=== PATIENT | female | born 1975 | race Asian ===

== ENCOUNTER 2024-06-04 11:23 | Emergency (ER) | payer MEDICAID ==
[~2024-06-04] VITALS: Ht 162.6 cm; Wt 54.5 kg
[~2024-06-04 11:23] MED LIST: DOXY-8 PO; ESCI10TA45 PO; ESOM40CA PO; HYDR1TAB PO; TRAZ50TA54 PO; WEL75T PO
[2024-06-04 12:10] LABS: BASOPHILS % (AUTO) 0.4 % (0-1); EOSINOPHILS # (AUTO) 0.1 X10'3 (0-0.9); EOSINOPHILS % (AUTO) 1.8 % (0-6); HEMATOCRIT 39.7 % (35.0-45.0); HEMOGLOBIN 13.1 g/dl (12.0-16.0); LYMPHOCYTES # (AUTO) 1.7 X10'3 (1.1-4.8); LYMPHOCYTES % (AUTO) 26.2 % (21-51); MEAN CORPUSCULAR HEMOGLOBIN 29.7 PG (27.0-31.0); MEAN CORPUSCULAR VOLUME 90.1 FL (78-98); MEAN PLATELET VOLUME 8.1 FL (7.4-10.4); MONOCYTES # (AUTO) 0.4 X10'3 (0-0.9); MONOCYTES % (AUTO) 6.8 % (2-12); NEUTROPHILS # (AUTO) 4.1 X10'3 (1.8-7.7); NEUTROPHILS % (AUTO) 64.8 % (42-75); PLATELET COUNT 282 X10'3 (140-440); RED BLOOD COUNT 4.41 X10'6 (4.20-5.60); RED CELL DISTRIBUTION WIDTH 14.2 % (11.5-14.5); WHITE BLOOD COUNT 6.3 X10'3 (4.5-11.0)
[2024-06-04 12:25] LABS: ALANINE AMINOTRANSFERASE 29 U/L (12-78); ALBUMIN 3.6 G/DL (3.4-5.0); ALBUMIN/GLOBULIN RATIO 0.7 (1.1-1.5); ALKALINE PHOSPHATASE 121 IU/L (46-116); ANION GAP 8 (8-16); ASPARTATE AMINO TRANSFERASE 25 U/L (10-37); BILIRUBIN,TOTAL 0.3 MG/DL (0.1-1.0); BLOOD UREA NITROGEN 13 MG/DL (7-18); BUN/CREATININE RATIO 15.1 (10.0-20.0); CALCIUM 8.8 MG/DL (8.5-10.1); CHLORIDE 102 MMOL/L (99-107); CREATININE 0.86 MG/DL (0.40-0.90); GLUCOSE 117 MG/DL (70-104); POTASSIUM 3.7 MMOL/L (3.5-5.1); SODIUM 139 MMOL/L (135-145); TOTAL CARBON DIOXIDE 29.5 MMOL/L (24-32); TOTAL PROTEIN 8.5 G/DL (6.4-8.2); eCRCL 67 ML/MIN; eGFR 70 ML/MIN
[2024-06-04 12:35] LABS: PRO BRAIN NATRIURETIC PEPTIDE 51 PG/ML (0-125)
[2024-06-04 13:19] LABS: THYROID STIMULATING HORMONE 0.76 ulU/ml (0.34-4.50)
[2024-06-04] MEDS ORDERED: GADOTERATE MEGLUMINE 7.5 MMOL/15 ML VIAL IV ONE (18:28)
[2024-06-04] MEDS: acetaminophen 325mg/10.15ml oral unit dose solution PO ONE (19:02)
[2024-06-04 19:05] VITALS: BP 128/76; PULSE 76; RESP 16; TEMP 98.1; O2SAT 99
== END 2024-06-04 19:13 | disposition home or self-care (01) ==
LOC: ER 11:23
DX: R22.1 Localized swelling, mass and lump, neck (principal); F41.9 Anxiety disorder, unspecified; Z88.6 Allergy status to analgesic agent; Z79.899 Other long term (current) drug therapy
CPT/HCPCS: 36415; 70543; 71045; 76881; 80053; 83880; 84443; 85025; 93005; 99285; A9575

== ENCOUNTER 2024-06-25 14:20 | Emergency (ER) | payer MEDICAID ==
[~2024-06-25] VITALS: Ht 147.3 cm; Wt 55.0 kg
[2024-06-25 14:28] VITALS: TEMP 98.5
[2024-06-25 16:19] LABS: BASOPHILS % (AUTO) 0.2 % (0-1); EOSINOPHILS # (AUTO) 0.2 X10'3 (0-0.9); EOSINOPHILS % (AUTO) 1.3 % (0-6); LYMPHOCYTES # (AUTO) 1.5 X10'3 (1.1-4.8); LYMPHOCYTES % (AUTO) 12.3 % (21-51); MEAN CORPUSCULAR HEMOGLOBIN 29.6 PG (27.0-31.0); MEAN CORPUSCULAR HGB CONC 33.2 g/dL (33.0-36.5); MEAN CORPUSCULAR VOLUME 89.3 FL (78-98); MEAN PLATELET VOLUME 8.2 FL (7.4-10.4); MONOCYTES # (AUTO) 1.2 X10'3 (0-0.9); MONOCYTES % (AUTO) 10.1 % (2-12); NEUTROPHILS # (AUTO) 9.4 X10'3 (1.8-7.7); NEUTROPHILS % (AUTO) 76.1 % (42-75); PLATELET COUNT 309 X10'3 (140-440); RED BLOOD COUNT 4.03 X10'6 (4.20-5.60); RED CELL DISTRIBUTION WIDTH 14.3 % (11.5-14.5); WHITE BLOOD COUNT 12.3 X10'3 (4.5-11.0)
[2024-06-25 16:37] LABS: ALANINE AMINOTRANSFERASE 27 U/L (12-78); ALBUMIN 3.1 G/DL (3.4-5.0); ALBUMIN/GLOBULIN RATIO 0.6 (1.1-1.5); ALKALINE PHOSPHATASE 128 IU/L (46-116); ANION GAP 5 (8-16); ASPARTATE AMINO TRANSFERASE 20 U/L (10-37); BILIRUBIN,TOTAL 0.4 MG/DL (0.1-1.0); BLOOD UREA NITROGEN 7 MG/DL (7-18); BUN/CREATININE RATIO 8.5 (10.0-20.0); CALCIUM 8.6 MG/DL (8.5-10.1); CHLORIDE 104 MMOL/L (99-107); CREATININE 0.82 MG/DL (0.40-0.90); GLUCOSE 117 MG/DL (70-104); LIPASE 22 U/L (16-77); POTASSIUM 3.9 MMOL/L (3.5-5.1); SODIUM 140 MMOL/L (135-145); TOTAL CARBON DIOXIDE 31.2 MMOL/L (24-32); eCRCL 52 ML/MIN; eGFR 73 ML/MIN
[2024-06-25 19:18] LABS: URINE HCG NEGATIVE (NEG)
[2024-06-25 19:31] LABS: BILIRUBIN,URINE NEGATIVE (Neg); CLARITY,URINE CLEAR (Clear); COLOR,URINE YELLOW (Yellow); GLUCOSE, URINE NEGATIVE (Neg); KETONES,URINE NEGATIVE (Neg); LEUKOCYTE ESTERASE ,URINE NEGATIVE (Neg); NITRITES, URINE NEGATIVE (Neg); OCCULT BLOOD,URINE LARGE (Neg); PH,URINE 6.5 (4.8-8.0); PROTEIN,URINE NEGATIVE (Neg); UROBILINOGEN,URINE 0.2 E.U/dL (0.2-1.0)
[2024-06-25 19:35] LABS: UA COLLECTION TYPE CLN CATCH MIDSTREAM
[2024-06-25 19:36] LABS: BACTERIA,URINE 1+ /HPF (Neg); RBC,URINE 20-50 /HPF (0-2); SQUAMOUS EPITHELIAL CELL,UR FEW /LPF (FEW); WBC,URINE 0-4 /HPF (0-4)
[2024-06-25] MEDS ORDERED: LEVO-65 PO (20:07)
[2024-06-25] MEDS ORDERED: POLY119P2 PO (20:07)
[2024-06-25] MEDS ORDERED: METR-159 PO (20:07)
[2024-06-25] MEDS: metroNIDAZOLE 500mg tablet PO ONE (20:13)
[2024-06-25] MEDS: levoFLOXACIN 250mg tablet PO ONE (20:14)
[2024-06-25 20:20] VITALS: BP 105/68; PULSE 76; RESP 16; O2SAT 98
== END 2024-06-25 20:22 | disposition home or self-care (01) ==
LOC: ER 14:21
DX: K52.9 Noninfective gastroenteritis and colitis, unspecified (principal); K59.00 Constipation, unspecified; F41.9 Anxiety disorder, unspecified; Z88.6 Allergy status to analgesic agent; Z79.899 Other long term (current) drug therapy
CPT/HCPCS: 36415; 74176; 80053; 81001; 81025; 83690; 85025; 99284

== ENCOUNTER 2024-10-10 06:23 | Day surgery (SDC) | payer MEDICAID ==
[2024-10-03 11:01] LABS: BASOPHILS % (AUTO) 0.5 % (0-1); EOSINOPHILS # (AUTO) 0.1 X10'3 (0-0.9); EOSINOPHILS % (AUTO) 2.1 % (0-6); LYMPHOCYTES % (AUTO) 31.4 % (21-51); MEAN CORPUSCULAR HEMOGLOBIN 28.7 PG (27.0-31.0); MEAN CORPUSCULAR HGB CONC 32.2 g/dL (33.0-36.5); MEAN CORPUSCULAR VOLUME 89.1 FL (78-98); MEAN PLATELET VOLUME 8.2 FL (7.4-10.4); MONOCYTES # (AUTO) 0.7 X10'3 (0-0.9); MONOCYTES % (AUTO) 10.1 % (2-12); NEUTROPHILS # (AUTO) 3.7 X10'3 (1.8-7.7); NEUTROPHILS % (AUTO) 55.9 % (42-75); PRE OP HEMATOCRIT 39.7 % (35.0-45.0); PRE OP HEMOGLOBIN 12.8 g/dL (12.0-16.0); PRE OP PLATELET COUNT 268 X10'3 (140-440); PRE OP WHITE BLOOD COUNT 6.5 10'3 (4.8-10.8); RED BLOOD COUNT 4.46 X10'6 (4.20-5.60); RED CELL DISTRIBUTION WIDTH 14.3 % (11.5-14.5)
[2024-10-03 11:29] LABS: ALBUMIN 3.6 G/DL (3.4-5.0); ALBUMIN/GLOBULIN RATIO 0.8 (1.1-1.5); ALKALINE PHOSPHATASE 109 IU/L (46-116); BLOOD UREA NITROGEN 10 MG/DL (7-18); BUN/CREATININE RATIO 13.3 (10.0-20.0); CALCIUM 8.9 MG/DL (8.5-10.1); CHLORIDE 104 MMOL/L (99-107); CREATININE 0.75 MG/DL (0.40-0.90); PRE OP ALT 34 U/L (30-65); PRE OP ANION GAP 6 (8-16); PRE OP AST 32 U/L (10-37); PRE OP BILIRUB, TOTAL 0.3 MG/DL (0.0-1.0); PRE OP GLUCOSE 122 MG/DL (70-104); PRE OP POTASSIUM 3.8 MMOL/L (3.4-5.1); PRE OP SODIUM 142 MMOL/L (135-145); TOTAL CARBON DIOXIDE 32.4 MMOL/L (24-32); TOTAL PROTEIN 8.4 G/DL (6.4-8.2); eGFR 81 ML/MIN
[~2024-10-10] VITALS: Ht 129.5 cm; Wt 52.0 kg
[2024-10-10] VITALS (11 sets, daily range): BP systolic 91–132; BP diastolic 53–78; PULSE 64–96; RESP 12–20; TEMP 99; O2SAT 94–100
[~2024-10-10 06:23] MED LIST changes: +ALBU8HFA PO; +BECL10.62 INH; +DOCU-391 PO; -DOXY-8 PO; +ESCI-8 PO; -ESCI10TA45 PO; -ESOM40CA PO; -HYDR1TAB PO; +OMEP40CA21 PO; -TRAZ50TA54 PO
[2024-10-10] MEDS ORDERED: famotidine 20mg tablet ONE (06:52)
[2024-10-10] MEDS: famotidine 20mg tablet PO ONE (06:52)
[2024-10-10] MEDS: ringers solution, lacted 1,000 ML IV SCH (06:53)
[2024-10-10] MEDS ORDERED: proCHLORperazine 10 MG/2 ml inj IV PRN (08:25)
[2024-10-10] MEDS ORDERED: ringers solution, lacted 1,000 ML IV SCH (08:25)
[2024-10-10] MEDS ORDERED: HYDROmorphone/PF 0.2 MG/ML SYRINGE IV PRN ×2 (08:25)
[2024-10-10] MEDS ORDERED: meperidine/PF 25mg/ml syringe IV PRN (08:25)
[2024-10-10] MEDS ORDERED: labetalol 20mg/4ml (5mg/ml) syringe IV PRN (08:25)
[2024-10-10] MEDS ORDERED: ondansetron/PF 4mg/2ml inj IV PRN (08:25)
[2024-10-10] MEDS ORDERED: morphine 2 MG/ML inj. syringe IV PRN (08:25)
[2024-10-10] MEDS ORDERED: morphine 4 MG/ML inj SYRINge IV PRN (08:25)
[2024-10-10] MEDS ORDERED: acetaminophen 1,000mg/100ml IV 100 ML IV PRN (08:25)
[2024-10-10] MEDS ORDERED: hydrALAZINE 20mg/ml inj. IV PRN (08:25)
[2024-10-10] MEDS ORDERED: sevoflurane 250ml liquid IH ONE (08:38)
[2024-10-10] MEDS ORDERED: fentaNYL/PF 50MCG/1 ML 2ML syringe ONE (08:43)
[2024-10-10] MEDS ORDERED: ondansetron/PF 4mg/2ml inj ONE (09:01)
[2024-10-10] MEDS ORDERED: dexamethasone sod phosphate 4mg/ml inj. ONE (09:01)
[2024-10-10] MEDS ORDERED: midazolam 1 mg/ML 2ml injection ONE (09:01)
[2024-10-10] MEDS ORDERED: rocuronium 10mg/ml inj IV ONE (09:01)
[2024-10-10] MEDS ORDERED: LIDOcaine 2% (20mg/ml) 5ml vial ONE (09:01)
[2024-10-10] MEDS ORDERED: glycopyrrolate 0.2mg/ml inj ONE (09:30)
[2024-10-10] MEDS ORDERED: neostigmine methylsulfate 1 MG/ML 10ml vial ONE (09:30)
[2024-10-10] MEDS ORDERED: propofol inj 20 ML IV ONE (09:32)
[2024-10-10] MEDS ORDERED: sugammadex 200mg/2ml injection IV ONE (09:39)
== END 2024-10-10 11:03 | disposition home or self-care (01) ==
LOC: PAS 06:23
PROVIDERS: ATTEND Internal Medicine Critical Care Medicine
DX: R91.8 Other nonspecific abnormal finding of lung field (principal); C34.12 Malignant neoplasm of upper lobe, left bronchus or lung; F32.A Depression, unspecified; K21.9 Gastro-esophageal reflux disease without esophagitis; F41.8 Other specified anxiety disorders; Z87.891 Personal history of nicotine dependence; Z79.899 Other long term (current) drug therapy; Z91.041 Radiographic dye allergy status; J43.9 Emphysema, unspecified; Z88.8 Allergy status to other drugs, medicaments and biological substances; Z98.890 Other specified postprocedural states
CPT/HCPCS: 31624; 31627; 31628; 31653; 36415; 71250; 80053; 82948; 85025; 87015; 87070; 87116; 87206; 94760; J1100; J2003; J2250; J2405; J2704; J2710; J3010; J3490; J7120; Z7506; Z7508; Z7512; 31622; 31625; 31626; 31654; A4618

== ENCOUNTER 2024-11-28 07:15 | Outpatient (CLI) | payer MEDICAID ==
[~2024-11-28] VITALS: Ht 154.9 cm; Wt 53.5 kg
[2024-11-28 07:44] LABS: ABG BASE EXCESS 4.9 mmol/L (-2.0-3.0); ABG HCO3 29.8 mmol/L (21.0-28.0); ABG OXYGEN SATURATION 94.6 % (94.0-98.0); ABG PCO2 (T) 45.1 mmHg (32.0-45.0); ABG PH (T) 7.438 (7.350-7.450); FCOHb 0.5 % (0.5-1.5); FHHb 5.4 % (0.0-5.0); FMetHb 0.3 % (0.0-1.5); FO2Hb 93.8 % (94.0-98.0); MODE ROOM AIR; TOTAL HEMOGLOBIN 13.3 G/dl (12.0-16.0)
[2024-11-28] MEDS: albuterol 2.5 MG/3 ML nebule NEB ONE (08:15)
[2024-11-28 08:18] VITALS: PULSE 85; RESP 18; O2SAT 96
[2024-11-28 08:30] VITALS: PULSE 95; RESP 16
--- NOTE | 2024-11-28 15:05 | PROCEDURE NOTE - Respiratory ---
Procedure Note-Respiratory Providers to Copies To 1: BECKY PARKER MD Procedure Name: This is a complete pulmonary function study dated November 28, 2024. Hemoglobin measurement was done as part of the study. There was also a room air blood gas obtained from this patient on the same date. Spirometry measurements: There is moderate reduction in both the forced vital capacity and the FEV1. The FEV1 ratio is also slightly reduced. All of the measured flow rates show some degree of reduction. After inhaled bronchodilator was administered, the FEV1 and the flow rates show significant improvement. Lung volume measurements: The total lung capacity is in the normal range. There is slight elevation in the residual volume and functional residual capacity. This suggests a mild degree of air trapping within the lungs. Lung diffusion measurement: The DLCO measurement is in the lower range of normal. It is noted that the hemoglobin measurement is normal. Airway resistance measurement: The airway resistance is normal. Conclusion: This study is abnormal. There is evidence for moderate severity obstructive ventilatory defect. This is consistent with the patient's diagnosis of COPD. The patient shows slight improvement with inhaled bronchodilator. This patient should continue to receive bronchodilator medication. The lung diffusion measurement is in the normal range. We have no previous studies for comparison. A blood gas was drawn from this patient while the patient was breathing room air. The blood pH is normal. The pCO2 is borderline elevated. This suggests a minimal respiratory acidosis which is well compensated for with kidney bicarbonate retention. The room air PO2 is slightly diminished at 74 mmHg. LEANNE GARCES MD November 28, 2024 15:05
== END 2024-11-28 23:59 | disposition home or self-care (01) ==
LOC: RT 07:15
PROVIDERS: ATTEND Surgery
DX: J98.4 Other disorders of lung (principal)
CPT/HCPCS: 36600; 82803; 85018; 94060; 94727; 94729; 94760

== ENCOUNTER 2024-12-02 10:35 | Outpatient (CLI) | payer MEDICAID ==
[2024-12-01 14:18] LABS: ALANINE AMINOTRANSFERASE 24 U/L (12-78); ALBUMIN 3.4 G/DL (3.4-5.0); ALBUMIN/GLOBULIN RATIO 0.9 (1.1-1.5); ALKALINE PHOSPHATASE 114 IU/L (46-116); ANION GAP 6 (8-16); ASPARTATE AMINO TRANSFERASE 18 U/L (10-37); BILIRUBIN,TOTAL 0.2 MG/DL (0.1-1.0); BLOOD UREA NITROGEN 10 MG/DL (7-18); BUN/CREATININE RATIO 13.7 (10.0-20.0); CALCIUM 8.7 MG/DL (8.5-10.1); CHLORIDE 103 MMOL/L (99-107); CREATININE 0.73 MG/DL (0.40-0.90); GLUCOSE 115 MG/DL (70-104); POTASSIUM 3.6 MMOL/L (3.5-5.1); SODIUM 141 MMOL/L (135-145); TOTAL CARBON DIOXIDE 32.1 MMOL/L (24-32); TOTAL PROTEIN 7.4 G/DL (6.4-8.2); eGFR 84 ML/MIN
[2024-12-02] MEDS ORDERED: GADOTERATE MEGLUMINE 7.5 MMOL/15 ML VIAL IV ONE (14:03)
--- NOTE | 2024-12-03 08:35 | RADIOLOGY REPORT ---
CLINICAL INDICATION: MALIGNANT NEOPLASM OF LUNG COMPARISON: None TECHNIQUE: Multisequence multiplanar MRI images of the brain were obtained prior to and after the une ventful administration of 10 mL of Clariscan contrast. FINDINGS:No acute infarct or hemorrhage. No mass or midline shift. No abnormal parenchymal or meninge al enhancement. There are a few small foci of T2/FLAIR hyperintense signal in the periventricular and subcortical white matter, which are are nonspecific, but most likely sequelae of chronic small vesse l ischemic disease.Ventricles and sulci are within normal limits. Basal cisterns are patent. Cerebell um, brainstem, and midline structures are within normal limits. Mild mucosal thickening of the parana vanesa sinuses. Orbits are grossly unremarkable. IMPRESSION: 1. No acute intracranial abnormality. 2. No mass or abnormal postcontrast enhancement.
== END 2024-12-02 23:59 | disposition home or self-care (01) ==
LOC: MRI 10:35
PROVIDERS: ATTEND Surgery
DX: Z01.818 Encounter for other preprocedural examination (principal); C34.90 Malignant neoplasm of unspecified part of unspecified bronchus or lung; R90.82 White matter disease, unspecified; J32.9 Chronic sinusitis, unspecified
CPT/HCPCS: 36415; 70553; 80053; A9575

== ENCOUNTER 2025-01-26 05:10 | Inpatient (IN) | payer MEDICAID ==
[~2025-01-26] VITALS: Ht 154.9 cm; Wt 58.0 kg
[~2025-01-26 05:10] MED LIST changes: +METH-603 PO
--- NOTE | 2025-01-26 05:17 | ELECTROCARDIOGRAPH REPORT ---
[facility] Test Date: 2025-01-26 Test Time: 05:15:51 Pat Name: SIXTO BUCKLEY Department: EMERGENCY ROOM Room: [place] [address] Gender: F Building Certifier: SHMUEL : [id number] Requested By: CORAL PAYTON Order Number: [id number] Reading MD: Dr. Kristofer Garcia Measurements Intervals [place] Rate: 121 P: 84 IA: 161 QRS: 73 QRSD: 72 T: 51 QT: 316 QTc: 449 Interpretive Statements Sinus tachycardia Probable left atrial enlargement Minimal ST depression, diffuse leads Baseline wander in lead(s) V3 Electronically Signed On 02-04-2025 20:11:[address] Kristofer Garcia Please click the below link to view image of tracing.
--- NOTE | 2025-01-26 05:34 | Physician Documentation ---
History of Present Illness ~ Chief Complaint: Difficulty Breathing Stated Complaint: SHORT OF BREATH Time Seen by MD: 05:30 Primary Medical Doctor: JOSE A ACKERMAN HPI 49-year-old female, history of lung cancer status post lobectomy, who presents with shortness of breath The patient tells me that for the past 2-3 days she has had gradually worsening shortness of breath. She does report having a cough. She had a fever yesterday. She reports pain in her central chest. She reports diffuse abdominal pain as well. She reports feeling generally weak. She denies any vomiting or diarrhea. She did not really eat well yesterday. No leg pain or swelling. A family member was ill with a cough recently. Medication Reconciliation Allergies: Coded Allergies: amoxicillin (Verified Allergy, Unknown, 01/26/25) ibuprofen (Verified Adverse Reaction, Mild, 01/26/25) BLEEDING FROM HER NOSE IN 2011 Uncoded Allergies: CONTRAST (Allergy, Unknown, 10/09/24) Scheduled Beclomethasone Dipropionate (Qvar Redihaler), 2 PUFFS INH Q12H, (Reported) Docusate Sodium (Docusate Sodium), 1 CAP PO DAILY, (Reported) Gabapentin (Gabapentin), 1 CAP PO Q8H, (Reported) Levofloxacin (Levofloxacin), 1 TAB PO DAILY, (Reported) Levofloxacin (Levofloxacin), 1 TAB PO DAILY, (Reported) Metronidazole* (Flagyl*), 1 TAB PO Q12H, (Reported) Scheduled PRN Methadone Hcl* (Dolophine*), 40 MG PO BID PRN for pain, (Reported) albuterol inhaler (Pro-Air Inhaler), 2 PUFFS PO Q4H PRN for SOB or wheezing, (Reported) Discontinued Medications Bupropion Hcl* (Wellbutrin*), 1 TAB PO DAILY, (Reported) Discontinued Reason: patient no longer taking Escitalopram Oxalate (Escitalopram Oxalate), 1 TAB PO DAILY, (Reported) Discontinued Reason: patient no longer taking Omeprazole (Prilosec), 20 MG PO DAILY, (Reported) Discontinued Reason: patient no longer taking Past Medical History Past Medical History: Anxiety Past Surgical History: no surgical history Patient History: FHx: diabetes mellitus MOTHER Alcohol Use: None Drug Use: none Lives with: Family Lives In: Home Occupation: unemployed Review of Systems Constitutional: Reports: fever Respiratory: Reports: cough, shortness of breath Cardiovascular: Reports: chest pain Gastrointestinal: Reports: abdominal pain Physical Exam Vital Signs: Temperature: 100.8, Source: Oral, Heart Rate: 124, Pulse Oximetry: 100, Weight: 58.000 Physical Exam General: This is a thin and ill-appearing middle-aged woman HEENT: Atraumatic, oropharynx appears dry with cracked lips Heart: Tachycardic, appears regular, heart rate in the 120s Lungs: The patient is not in respiratory distress, but does have slightly increased respiratory rate. She has very coarse and wet sounding breath sounds diffusely Abdomen: Diffuse tenderness to palpation with voluntary guarding in all quadrants Extremities: Warm and well-perfused, no pitting edema, no posterior calf or thigh tenderness Neuro: Alert and oriented, the patient is not appear confused Psychiatric: Appears tired but is cooperative with exam Progress Results/Orders Results/Orders Orders - LELIA DUMONT MD Covid19 Binax Poc Result Entry (01/26/25 06:10) Store Meds In Pharmacy (Store Meds In Ph (01/26/25 09:50) Ct Chest Abdomen Pelvis (01/26/25 12:01) Page Hospitalist (01/26/25 12:51) Fill Out Med Reconciliation (01/26/25 12:51) Completed Orders - LELIA DUMONT MD Methylprednisolone Sod Succ (Solumedrol (01/26/25 06:20) Ceftriaxone/I4x-Iubxsrjq 1gm (Rocephin 1 (01/26/25 06:25) Azithromycin/Ns 500mg/250ml (Zithromax/N (01/26/25 06:25) Normal Saline 1000ml (0.9% Sodium Chlori (01/26/25 07:30) Potassium Cl Sr Tablet (K-Dur Tablet) (01/26/25 07:27) Potassium Cl 10meq/100ml Bag (Potassium (01/26/25 07:30) Normal Saline 1000ml (0.9% Sodium Chlori (01/26/25 07:30) Iohexol 350mg/Ml 100ml (Omnipaque 350mg/ (01/26/25 09:52) Diphenhydramine Inj (Benadryl Inj.) (01/26/25 10:45) Ct Chest Abdomen Pelvis (01/26/25 12:01) Medications Received in ER Medications (Trade) Dose Ordered Sig/Jude Route PRN Reason Start Time Stop Time Status Last Admin Dose Admin Sodium Chloride 1,000 ml @ 1,000 mls/hr ONCE ONCE IV 01/26/25 07:30 01/26/25 08:29 DC 01/26/25 08:01 1,000 MLS/HR Potassium Chloride 100 ml @ 100 mls/hr Q1H IV 01/26/25 07:30 01/26/25 08:29 DC 01/26/25 08:01 100 MLS/HR Sodium Chloride 1,000 ml @ 1,000 mls/hr ONCE ONCE IV 01/26/25 07:30 01/26/25 08:29 DC 01/26/25 08:00 1,000 MLS/HR Vital Signs 01/26/25 01/26/25 01/26/25 01/26/25 05:14 05:31 05:37 07:00 Temp 100.8 100.8 97.9 Pulse 124 133 106 Resp 21 17 B/P (MAP) 157/67 (97) 109/55 (73) Pulse Ox 100 90 96 O2 Flow Rate 0 2.0 01/26/25 01/26/25 01/26/25 01/26/25 09:00 11:00 12:02 12:51 Temp 97.9 Pulse 108 99 99 90 Resp 18 15 19 12 B/P (MAP) 109/55 (73) 129/69 (89) 123/66 (85) 123/68 (86) Pulse Ox 96 99 97 98 O2 Flow Rate 2.0 2.0 2.0 2.0 Laboratory Tests Test 01/26/25 05:55 01/26/25 06:03 01/26/25 07:43 01/26/25 08:08 White Blood Count 14.6 H Red Blood Count 3.95 L Hemoglobin 11.2 L Hematocrit 34.5 L Mean Corpuscular Volume 87.3 Mean Corpuscular Hemoglobin 28.3 Mean Corpuscular Hemoglobin Concent 32.4 L Red Cell Distribution Width 14.7 H Platelet Count 315 Mean Platelet Volume 7.9 Neutrophils (%) (Auto) 73.6 Lymphocytes (%) (Auto) 18.7 L Monocytes (%) (Auto) 5.6 Eosinophils (%) (Auto) 1.7 Basophils (%) (Auto) 0.4 Neutrophils # (Auto) 10.8 H Lymphocytes # (Auto) 2.7 Monocytes # (Auto) 0.8 Eosinophils # (Auto) 0.2 Basophils # (Auto) 0.1 CBC Comment Sodium Level 141 Potassium Level 2.9 *L Chloride Level 102 Carbon Dioxide Level 27.8 Anion Gap 11 Blood Urea Nitrogen 9 Creatinine 0.81 Estimated GFR/1.73 m2 75 BUN/Creatinine Ratio 11.1 Glucose Level 124 H Hemoglobin A1c 6.1 Calcium Level 8.6 Total Bilirubin 0.2 Aspartate Amino Transf (AST/SGOT) 17 Alanine Aminotransferase (ALT/SGPT) 20 Alkaline Phosphatase 112 Pro-B-Type Natriuretic Peptide 72 Total Protein 8.2 Albumin 3.3 L Globulin 4.9 H Albumin/Globulin Ratio 0.7 L Lipase 31 Procalcitonin < 0.05 Chemistry Comments Lactic Acid Level 3.8 H 3.1 H Troponin I High Sensitivity 4 8 Troponin I High Sens Percent Delta 100 Troponin I Hi Sens Absolute Change 4 Urine Specimen Description Cln catch midstream Urine Color Yellow Urine Clarity Clear Urine pH 6.0 Urine Specific [place] 1.020 Urine Protein Negative Urine Glucose (UA) Negative Urine Ketones Negative Urine Occult Blood Large H Urine Nitrite Negative Urine Bilirubin Negative Urine Urobilinogen 0.2 Urine Leukocyte Esterase Negative Urine RBC 20-50 Urine WBC 0-4 Urine Squamous Epithelial Cells Moderate Urine Bacteria Few Urine Hyaline Casts 0-3 Urine Culture Indicated Not ind Volume Urine Centrifuged 10 ml Urine Comment SARS-CoV-2 Antigen (Rapid) Negative Test 01/26/25 08:28 Troponin I High Sensitivity 12 Troponin I High Sens Percent Delta 50 Troponin I Hi Sens Absolute Change 4 Microbiology Date/Time Source Procedure Growth Status 01/26/25 06:03 Blood Arm Right Blood Culture - Preliminary NEGATIVE (LESS THAN 24 HOURS) Resulted EKG/XRAY/CT/US/VASC/MRI EKG : Additional Comment I personally interpreted the EKG and this shows: Sinus tachycardic, rate 121, QTC less than 500, poor baseline but no obvious STEMI or ischemic changes Chest X-Ray : Additional Comments CHEST RADIOGRAPH Indication: CP Technique: Single frontal view of the chest was obtained COMPARISON: DI CHEST,SINGLE VIEW on DOS: 12/21/24, DI CHEST,SINGLE VIEW on DOS: 12/20/24, DI CHEST,SINGLE VIEW on DOS: 12/19/24, DI CHEST,SINGLE VIEW on DOS: 12/18/24, DI CHEST,SINGLE VIEW on DOS: 12/17/24 FINDINGS: Lines and Tubes: None Lungs: Clear Pleura: No effusion. No pneumothorax. Cardiomediastinal contours: Unremarkable Bones: Unremarkable IMPRESSION: 1. No acute disease. CT : Impression Procedure: CT CT CHEST ABDOMEN PELVIS 01/26/2025 11:51 AM Indication: chest and abdominal pain Comparison Study: CT CT ABDOMEN PELVIS on DOS: 06/25/24 Technique: Axial images were obtained and reformatted in coronal and sagittal planes. All CT scans at this medical facility are performed using dose modulation techniques as appropriate to a performed exam including the following: Automated exposure control was utilized; adjustment of the MA and/or KV according to patient size; and use of iterative reconstruction technique. CT Dose: CTDI volume is 10.4 mGy. Dose-length product is 521 mGy*cm FINDINGS: Lower neck: Unremarkable. Cardiomediastinal: The heart size is slightly enlarged. There is a small pericardial effusion. There is coronary artery calcification. There are small calcified left hilar lymph nodes. The aorta is slightly tortuous Lungs: There are patchy infiltrates present in both lower lobes. There is some focal consolidation or atelectasis in the right middle lobe. Pleura: Left pleural effusion is present. Hepatobiliary: Unremarkable. Spleen: Unremarkable. Pancreas: Unremarkable. Adrenal Glands: Unremarkable. tract: The kidneys are normal in size bilaterally without hydronephrosis or nephrolithiasis. The urinary bladder is unremarkable. GI tract: The stomach is grossly normal in appearance. No evidence of small bowel obstruction. The large bowel is unremarkable. There is stool throughout the colon. No evidence of appendicitis. Lymphatics: No mesenteric, retroperitoneal or periportal lymphadenopathy. Vasculature: The abdominal aorta is normal in in caliber. Pelvic Organs: Unremarkable. Bones/soft tissues: No acute abnormality. Other: None. IMPRESSION: 1. Patchy bibasilar infiltrates with left pleural effusion. Atelectasis right middle lobe. Small pericardial effusion 2. Fecal loading in the colon. No acute pathology in the abdomen or pelvis Medical Decision Making Differential Dx:Considerations: Include: asthma, bronchitis, cardiogenic shock, CHF, dysrhythmia, hyponatremia, myocardial infarction, pneumonia, pneumothorax, pulmonary embolism, respiratory distress, upper resp. infection Assessment The patient presents with shortness of breath, reported fever, and is ill- appearing. On exam she has diffuse crackles and coarse breath sounds, concerning for pneumonia or pulmonary edema. She does not have significant wheezes. EKG without clear ischemic changes. She was given pain and nausea medication. A broad workup will be obtained including evaluation for sepsis, pneumonia, and cardiac cause of her symptoms. The patient was signed out at shift change to the oncoming ER provider, pending further workup and testing. I received sign-out from the incoming ED physician. This is a 49-year-old female presenting with shortness of breath, fever and rapid heart rate. Her lab workup indicates a WBC count of 14.6. Her lactic acid was also elevated to 3.8. Patient was tachycardic initially. As per septic protocol she was medicated with IV fluids proximally 2 L which would meet her 30 cc per kg protocol. Patient was also hypokalemic and her potassium was replaced. Additionally I did start her on IV ceftriaxone 1 g and IV azithromycin 500 mg. She was complaining of some chest pain and abdominal pain as well on a CT of the chest abdomen and pelvis was was done which confirmed some bilateral pulmonary infiltrates versus atelectasis which likely represents a pneumonia. I suspect that she is having pneumonia with sepsis and will need to be admitted for further treatment and care. Departure Disposition: ADMITTED INPATIENT Admitted to Inpatient Unit: to hospitalist Admission Level of Care: Med/Surg with Tele Impression: Primary Impression: Pneumonia Additional Impressions: Sepsis Hypokalemia Referrals: NO PRIMARY CARE PROVIDER (PCP) Critical Care Note Total Time (mins): 76 Critical Care Note The very real possibility of a deterioration of this patient's condition requir ed the highest level of my preparedness for sudden, emergent intervention. I provided critical care services, which included medication orders, frequent reevaluations of the patient's condition and response to treatment, ordering and reviewing test results, and discussing the case with various consultants. Excludes time spent performing separately billable procedures. The critical care time associated with the care of the patient was. Signature Scribe Signature: louisa Attestation: CORAL Rivero MD Jan 26, 2025 05:34 LELIA DUMONT MD Jan 26, 2025 12:48
[2025-01-26] MEDS: morphine 4 MG/ML inj SYRINge IV ONE (05:55)
[2025-01-26] MEDS: ondansetron/PF 4mg/2ml inj IV ONE (05:55)
[2025-01-26 06:18] LABS: MEAN PLATELET VOLUME 7.9 FL (7.4-10.4); RED CELL DISTRIBUTION WIDTH 14.7 % (11.5-14.5)
[2025-01-26 06:44] LABS: CREATININE 0.81 MG/DL (0.40-0.90); PRO BRAIN NATRIURETIC PEPTIDE 72 PG/ML (0-125); TOTAL CARBON DIOXIDE 27.8 MMOL/L (24-32); eCRCL 62 ML/MIN; eGFR 75 ML/MIN
[2025-01-26] MEDS: azithromycin/NS 500mg/250ml 250 ML IV ONE (06:48)
[2025-01-26] MEDS: CefTRIAXone/D5W-Rocephin 1gm 50 ML IV ONE (06:49)
--- NOTE | 2025-01-26 06:58 | RADIOLOGY REPORT ---
CHEST RADIOGRAPH Indication: CP Technique: Single frontal view of the chest was obtained COMPARISON: DI CHEST,SINGLE VIEW on DOS: 12/21/24, DI CHEST,SINGLE VIEW on DOS: 12/20/24, DI CHEST,SINGLE VIEW on DOS: 12/19/24, DI CHEST,SINGLE VIEW on DOS: 12/18/24, DI CHEST,SINGLE VIEW on DOS: 12/17/24 FINDINGS: Lines and Tubes: None Lungs: Clear Pleura: No effusion. No pneumothorax. Cardiomediastinal contours: Unremarkable Bones: Unremarkable IMPRESSION: 1. No acute disease.
[2025-01-26] MEDS: normal saline 1000ml 1,000 ML IV ONE ×3 (08:00→21:44)
[2025-01-26] MEDS: potassium CL 10mEq/100ml bag 100 ML IV SCH (08:01)
[2025-01-26] MEDS: potassium Cl 20 mEq SR tablet PO STA (08:01)
[2025-01-26 08:25] LABS: LEUKOCYTE ESTERASE ,URINE NEGATIVE (Neg); NITRITES, URINE NEGATIVE (Neg); OCCULT BLOOD,URINE LARGE (Neg)
[2025-01-26 08:29] LABS: UA COLLECTION TYPE CLN CATCH MIDSTREAM
[2025-01-26 08:31] LABS: SQUAMOUS EPITHELIAL CELL,UR MODERATE /LPF (FEW)
[2025-01-26 08:32] LABS: HYALINE CASTS 0-3 /LPF (NEGATIVE)
[2025-01-26] MEDS ORDERED: METR-159 PO (09:16)
[2025-01-26] MEDS ORDERED: LEVO-65 PO (09:16)
[2025-01-26] MEDS ORDERED: GABA-530 PO (09:16)
--- NOTE | 2025-01-26 12:32 | RADIOLOGY REPORT ---
Procedure: CT CT CHEST ABDOMEN PELVIS 01/26/2025 11:51 AM Indication: chest and abdominal pain Comparison Study: CT CT ABDOMEN PELVIS on DOS: 06/25/24 Technique: Axial images were obtained and reformatted in coronal and sagittal planes. All CT scans at this medical facility are performed using dose modulation techniques as appropriate to a performed e xam including the following: Automated exposure control was utilized; adjustment of the MA and/or KV according to patient size; and use of iterative reconstruction technique. CT Dose: CTDI volume is 10. 4 mGy. Dose-length product is 521 mGy*cm FINDINGS: Lower neck: Unremarkable. Cardiomediastinal: The heart size is slightly enlarged. There is a small pericardial effusion. There is coronary artery calcification. There are small calcified left hilar lymph nodes. The aorta is sli ghtly tortuous Lungs: There are patchy infiltrates present in both lower lobes. There is some focal consolidation o r atelectasis in the right middle lobe. Pleura: Left pleural effusion is present. Hepatobiliary: Unremarkable. Spleen: Unremarkable. Pancreas: Unremarkable. Adrenal Glands: Unremarkable. tract: The kidneys are normal in size bilaterally without hydronephrosis or nephrolithiasis. The u rinary bladder is unremarkable. GI tract: The stomach is grossly normal in appearance. No evidence of small bowel obstruction. The la rge bowel is unremarkable. There is stool throughout the colon. No evidence of appendicitis. Lymphatics: No mesenteric, retroperitoneal or periportal lymphadenopathy. Vasculature: The abdominal aorta is normal in in caliber. Pelvic Organs: Unremarkable. Bones/soft tissues: No acute abnormality. Other: None. IMPRESSION: 1. Patchy bibasilar infiltrates with left pleural effusion. Atelectasis right middle lobe. Small per icardial effusion 2. Fecal loading in the colon. No acute pathology in the abdomen or pelvis
[2025-01-26] MEDS ORDERED: potassium Cl 40MEQ/1/2NS 520ml 520 ML IV PRN (14:00)
[2025-01-26] MEDS ORDERED: magnesium sulf-water 4G/100mL 100 ML IV PRN (14:00)
[2025-01-26] MEDS ORDERED: magnesium sulf-water 2g/50mL 50 ML IV PRN (14:00)
[2025-01-26] MEDS ORDERED: magnesium Cl slow-release 64mg tablet PO PRN (14:00)
[2025-01-26] MEDS: normal saline 1000ml 1,000 ML IV SCH (14:18)
--- NOTE | 2025-01-26 14:23 | HISTORY AND PHYSICAL-Residence ---
History & Physical Providers to CC Resident Creating Document: TREE RAUSCH RES ~ History of Present Illness Primary Medical Doctor: JOSE A ACKERMAN Reason for Admit\\Complaint: shortness of breath, cough, fever History of Present Illness The patient is a 49-year-old female with a history of lung cancer who underwent robotic assisted left upper lobectomy with lymph node resection on December 23, 2024. She presents with progressively worsening shortness of breath over the past three days. She also reports a dry cough, intermittent fever, pleuritic chest pain (worse with deep inspiration), and generalized weakness. She notes that two of her daughters recently had "flu-like symptoms" with cough and fever prior to the onset of her current illness. She denies sputum production or hemoptysis. Her past medical history is also notable for a history of opioid use for 10 years, which she quit in 2020 with a brief relapse. She is currently maintained on methadone and attends a methadone clinic twice a month. She smoked for approximately eight years but quit after she suffered COVID infection in 2020. Allergies: Coded Allergies: amoxicillin (Verified Allergy, Unknown, 01/26/25) ibuprofen (Verified Adverse Reaction, Mild, 01/26/25) BLEEDING FROM HER NOSE IN 2011 Uncoded Allergies: CONTRAST (Allergy, Unknown, 10/09/24) Home Medications Home Medications Active Reported Levofloxacin 500 Mg Tablet 1 Tab PO DAILY 10 Days Levofloxacin 500 Mg Tablet 1 Tab PO DAILY 10 Days Flagyl* (Metronidazole) 500 Mg Tablet 1 Tab PO Q12H 7 Days Gabapentin 100 Mg Capsule 1 Cap PO Q8H 30 Days Dolophine* (Methadone HCl) 10 Mg Tablet 40 Mg PO BID PRN Qvar Redihaler (Beclomethasone Dipropionate) 80 Mcg/Actuation Hfa.aeroba 2 Puffs INH Q12H 30 Days Pro-Air Inhaler (Albuterol) 8.5 Gm Inhaler 2 Puffs PO Q4H PRN Docusate Sodium 100 Mg Capsule 1 Cap PO DAILY Past Medical History Past Medical History Lung cancer Past Surgical History Surgical History Comment Left upper lobectomy Family History Family History: FHx: diabetes mellitus MOTHER Past Social History Social History Comment Lives with her daughter in a duplex. Denies smoking, on methadone, denies alcohol Smoking: Non-Smoker Alcohol Use: None Drug Use: None Lives with: Family Lives In: Home Occupation: unemployed ROS All Other Systems: Reviewed and Negative ROS As stated above in the HPI, otherwise all systems are reviewed and negative. Constitutional: Reports: fever Respiratory: Reports: cough, shortness of breath Cardiovascular: Reports: chest pain Gastrointestinal: Reports: abdominal pain Exam Vitals: Vital Signs Date Time Temp Pulse Resp B/P (MAP) Pulse Ox O2 Delivery O2 Flow Rate FiO2 01/26/25 12:51 97.9 90 12 123/68 (86) 98 2.0 General: Cachectic and frail HEENT: Conjunctiva pink, Sclera clear, Mucus Membranes moist. Neck: Supple without masses and tenderness. Resp: Rhonchi left lower lobe. Heart: Sinus tachy, normal S1 and S2 without murmur, rub or gallop. Abdomen: Soft and non tender no organomegaly Extremities: No cyanosis,clubbing or edema. Skin: Warm and Dry. Diagnostic Data Last Recorded Lab Results: 01/26/25 0555 01/26/25 0555 Advance Care Planning Advanced Care plannin - 30 Minutes Additional Plan Acute hypoxemic respiratory failure Suspected Hospital-acquired pneumona (DC's on 12/31/24) Recent admission & surgery +immunocompromised status from cancer increases risk for MRSA/Pseudomonas Sepsis present on admission, 2/2 to above; lactic acidosis, tachycardia, tachypnea, leukocytosis History of lung cancer, status post left upper lobectomy on 12/23/2024 Presenting with SOB, dry cough, pleuritic chest pain, fever, and weakness CT shows left-sided consolidation Preliminary blood culture negative, follow sputum culture IV hydration; received 1 L bolus NS in ER, continue NS 125 mL/hours Empiric antibiotics; amoxicillin allergy. Therefore, vancomycin, and cefepime initiated Pain management; on morphine 2 mg every 4 hours as needed History of lung cancer Status post left upper lobectomy on 12/23/2024 Follow up appointment with the oncologist is scheduled on February 12 at 10:00 a.m. Encouraged adherence to follow up appointments Opiate use disorder (in remission) History of opioid use for 10 years; quit in 2020 Currently compliant with methadone, attends clinic twice monthly Monitor for signs of withdrawal Code status: Full code DVT prophylaxis: [facility] Resident Date of Service: Jan 26, 2025 Billing Provider: MYRON GUTIÉRREZ MD Common Visit Codes: 61232-[id number] INP/OBS CARE (HIGH) Secondary Visit Codes: 52135-OCICPFHP CARE PLAN 30 MINUTES TREE RAUSCH, RES Jan 26, 2025 14:23 MYRON GUTIÉRREZ MD Jan 27, 2025 21:14
[2025-01-26 15:20] VITALS: BP 133/70; PULSE 85; RESP 15; TEMP 98; O2SAT 96
[2025-01-26 15:30] VITALS: RESP 15; O2SAT 96
[2025-01-26] MEDS ORDERED: aztreonam inj. 1,000 MG in normal saline 100ml IV soln 100 ML IV SCH (16:00)
[2025-01-26] MEDS ORDERED: piperacillin/tazo 3.375gm/50ml 50 ML IV SCH (16:00)
[2025-01-26] MEDS: VANCOMYCIN/WATER FOR INJ (PEG) 1.5GM/300 ML IVPB IV ONE (17:40)
[2025-01-26] MEDS: ipratropium/albuterol 3ml nebule NEB PRN (18:51)
[2025-01-26 18:55] VITALS: PULSE 74; RESP 16; O2SAT 94
[2025-01-26 19:06] VITALS: PULSE 87; RESP 16
[2025-01-26] MEDS ORDERED: methadone 10mg tablet PO PRN (19:10)
[2025-01-26 20:00] VITALS: RESP 18; O2SAT 94
[2025-01-26] MEDS: K and/or MAG REPLACEMENT MC SCH (20:00)
[2025-01-26] MEDS: cefepime 1GM in D5W 50mL 100 ML IV SCH (20:23)
[2025-01-26] MEDS: methadone 10mg tablet PO SCH (20:35)
[2025-01-26] MEDS: potassium Cl 20 mEq SR tablet PO PRN (20:36)
[2025-01-26] MEDS: polyethylene glycol 3350 17gm powd pack PO SCH (20:36)
[2025-01-26 22:00] VITALS: BP 124/67; PULSE 92; RESP 20; TEMP 96.7; O2SAT 94
[2025-01-26] MEDS: guaiFENesin 200 MG/10 ML oral syrup UD cup PO PRN (23:04)
[2025-01-27] VITALS (12 sets, daily range): BP systolic 110–141; BP diastolic 54–74; PULSE 65–87; RESP 13–20; TEMP 97.2–98.3; O2SAT 90–100
[2025-01-27] MEDS: vancomycin/NS 1 GM ADD-VANTAGE 250 ML X 1 DOSE IV SCH (03:05)
[2025-01-27] MEDS: bisacodyl 10mg suppository rectal RC STA (03:20)
[2025-01-27 04:28] LABS: MEAN PLATELET VOLUME 7.9 FL (7.4-10.4); RED CELL DISTRIBUTION WIDTH 14.8 % (11.5-14.5)
[2025-01-27 04:42] LABS: APTT 30 SECONDS (22-32); INR 1.0 INR
[2025-01-27 04:45] LABS: CHOL/HDL RATIO 3.3 (0.00-4.99); CREATININE 0.75 MG/DL (0.40-0.90); LDL CHOLESTEROL 112 MG/DL (50-100); TOTAL CARBON DIOXIDE 23.2 MMOL/L (24-32); eCRCL 67 ML/MIN; eGFR 81 ML/MIN
[2025-01-27] MEDS: enoxaparin 40mg/0.4ml syringe SUBCUT SCH (08:42)
[2025-01-27] MEDS: docusate sod 100mg capsule PO SCH (08:43)
[2025-01-27] MEDS: pantoprazole 40mg Tablet.DR PO SCH (08:48)
[2025-01-27] MEDS: lactulose 20gm/30ml cup PO ONE (12:18)
[2025-01-27] MEDS: methylnaltrexone br 12mg/0.6ml inj***SubQ only SQ ONE (12:20)
[2025-01-27] MEDS: ondansetron/PF 4mg/2ml inj IV PRN (12:45)
[2025-01-27] MEDS: lactose-reduced food (Ensure Enlive) - 237ml bottle PO SCH (13:35)
[2025-01-27] MEDS: bisacodyl 10mg suppository rectal RC PRN (13:59)
[2025-01-27] MEDS ORDERED: bisacodyl 10mg suppository rectal RC PRN (16:35)
--- NOTE | 2025-01-27 16:41 | PROGRESS NOTE- Residence ---
Progress Note - Resident Providers to CC Resident Creating Document: PAUL FOREMAN RES ~ Antibiotic Timeout Antibiotic Ordered?: Yes Subjective Patient was seen and examined at bedside. She reports epigastric pain, and abdominal pain. She had bowel movement last night, able to pass gas and reports chronic constipation. She has been on Methadone, given a single dose of relistor and lactulose. She became sweaty with relistor and vomiting after taking lactulose. Her constipation now is being treated with Dulcolax suppositories. Her home medication, Protonix 40 mg p.o. daily also resumed. Objective Vital Signs Date Time Temp Pulse Resp B/P (MAP) Pulse Ox O2 Delivery O2 Flow Rate FiO2 01/27/25 15:33 77 16 Nasal Cannula 2.0 01/27/25 15:27 99 36 01/27/25 10:33 98.3 130/63 (85) General: Cachectic and frail HEENT: Conjunctiva pink, Sclera clear, Mucus Membranes moist. Neck: Supple without masses and tenderness. Resp: Rhonchi left lower lobe. Heart: Sinus tachy, normal S1 and S2 without murmur, rub or gallop. Abdomen: Soft and non tender no organomegaly Extremities: No cyanosis,clubbing or edema. Skin: Warm and Dry. Result Diagram: 01/27/25 0416 01/27/25 0416 Coagulation Studies Laboratory Tests Test 01/27/25 04:16 Prothrombin Time 10.7 SECONDS (9.0-12.0) INR International Normalized Ratio 1.0 INR Activated Partial Thromboplast Time 30 SECONDS (22-32) Coagulation Comments Advance Care Planning Advanced Care plannin - 30 Minutes Assessment Assessment The patient is a 49-year-old female with a history of lung cancer who underwent robotic assisted left upper lobectomy with lymph node resection on December 23, 2024. She presents with progressively worsening shortness of breath over the past three days. She also reports a dry cough, intermittent fever, pleuritic chest pain (worse with deep inspiration), and generalized weakness. Plan Plan Acute hypoxemic respiratory failure Suspected Hospital-acquired pneumona (DC'd on 12/31/24) Recent admission & surgery +immunocompromised status from cancer increases risk for MRSA/Pseudomonas Sepsis present on admission, 2/2 to above; lactic acidosis, tachycardia, tachypnea, leukocytosis History of lung cancer, status post left upper lobectomy on 12/23/2024 Presenting with SOB, dry cough, pleuritic chest pain, fever, and weakness CT shows left-sided consolidation Preliminary blood culture negative, follow sputum culture IV hydration; received 1 L bolus NS in ER, continue NS 125 mL/hours Empiric antibiotics; amoxicillin allergy. Therefore, vancomycin, and cefepime initiated Pain management; on morphine 2 mg every 4 hours as needed History of lung cancer Status post left upper lobectomy on 12/23/2024 Follow up appointment with the oncologist is scheduled on February 12 at 10:00 a.m. Encouraged adherence to follow up appointments Opiate use disorder (in remission) History of opioid use for 10 years; quit in 2020 Currently compliant with methadone, attends clinic twice monthly Monitor for signs of withdrawal Code status: Full code DVT prophylaxis: Cynthia Foreman Internal Medicine Resident Addendum abd pain, poss constipation, try relistor Date of Service: Jan 27, 2025 Billing Provider: MYRON GUTIÉRREZ MD Common Visit Codes: [id number] INP/OBS CARE(HIGH) PAUL FOREMAN, RES Jan 27, 2025 16:41 MYRON GUTIÉRREZ MD Jan 27, 2025 21:15
[2025-01-28] VITALS (12 sets, daily range): BP systolic 113–134; BP diastolic 62–89; PULSE 70–164; RESP 12–18; TEMP 97.3–98.4; O2SAT 90–99
[2025-01-28 04:06] LABS: MEAN PLATELET VOLUME 7.8 FL (7.4-10.4); RED CELL DISTRIBUTION WIDTH 14.7 % (11.5-14.5)
[2025-01-28] MEDS: VANCOMYCIN LEVEL IV ONE (04:06)
[2025-01-28 04:20] LABS: APTT 28 SECONDS (22-32); INR 1.0 INR
[2025-01-28 05:12] LABS: CREATININE 0.88 MG/DL (0.40-0.90); TOTAL CARBON DIOXIDE 25.1 MMOL/L (24-32); eCRCL 57 ML/MIN; eGFR 68 ML/MIN
[2025-01-28] MEDS: metoclopramide 5 mg/ml inj IV PRN (08:06)
--- NOTE | 2025-01-28 12:03 | PROGRESS NOTE- Residence ---
Progress Note - Resident Providers to CC Resident Creating Document: PAUL FOREMAN RES ~ Antibiotic Timeout Antibiotic Ordered?: Yes Subjective Patient was seen and examined at bedside. had chronic constipation, being treated with Colace and Dulcolax suppositories. She had five bowel movement since yesterday. However, she still complains of mild diffuse abdominal pain. CT abdomen ordered, we will follow. As requested by the patient, I spoke with her sister; Abran ([phone]), explained clinical condition, imaging and lab work and updated her on disposition. Patient most likley be DC'd home tomorrow. Objective Vital Signs Date Time Temp Pulse Resp B/P (MAP) Pulse Ox O2 Delivery O2 Flow Rate FiO2 01/28/25 11:00 97.6 79 12 118/71 (87) 96 Room Air 01/28/25 10:07 0 21 General: Cachectic and frail HEENT: Conjunctiva pink, Sclera clear, Mucus Membranes moist. Neck: Supple without masses and tenderness. Resp: Rhonchi left lower lobe. Heart: Sinus rhythm, normal S1 and S2 without murmur, rub or gallop. Abdomen: mild tenderness no organomegaly Extremities: No cyanosis,clubbing or edema. Skin: Warm and Dry. Result Diagram: 01/28/25 0359 01/28/25 0359 Coagulation Studies Laboratory Tests Test 01/28/25 03:59 Prothrombin Time 10.3 SECONDS (9.0-12.0) INR International Normalized Ratio 1.0 INR Activated Partial Thromboplast Time 28 SECONDS (22-32) Coagulation Comments Advance Care Planning Advanced Care plannin - 30 Minutes Assessment Assessment The patient is a 49-year-old female with a history of lung cancer who underwent robotic assisted left upper lobectomy with lymph node resection on December 23, 2024. She presents with progressively worsening shortness of breath over the past three days. She also reports a dry cough, intermittent fever, pleuritic chest pain (worse with deep inspiration), and generalized weakness. Plan Plan Acute hypoxemic respiratory failure Suspected Hospital-acquired pneumona (DC'd on 12/31/24) Recent admission & surgery +immunocompromised status from cancer increases risk for MRSA/Pseudomonas Sepsis present on admission, 2/2 to above; lactic acidosis, tachycardia, tachypnea, leukocytosis History of lung cancer, status post left upper lobectomy on 12/23/2024 Presenting with SOB, dry cough, pleuritic chest pain, fever, and weakness CT shows left-sided consolidation Preliminary blood culture negative, follow sputum culture IV hydration; received 1 L bolus NS in ER, continue NS 125 mL/hours Empiric antibiotics; amoxicillin allergy. Therefore, vancomycin, and cefepime initiated Pain management; on morphine 2 mg every 4 hours as needed History of lung cancer Status post left upper lobectomy on 12/23/2024 Follow up appointment with the oncologist is scheduled on February 12 at 10:00 a.m. Encouraged adherence to follow up appointments Opiate use disorder (in remission) History of opioid use for 10 years; quit in 2020 Currently compliant with methadone, attends clinic twice monthly Monitor for signs of withdrawal January 28, 2025: Shortness of breaths improved, WBC trended down. Chronic constipation, received Dulcolax suppositories, methylnaltrexone and Colace. Constipation relieved, five bowel movements Reports abdominal pain, CT abdomen without contrast ordered, she has contrast allergy, we will follow Code status: Full code DVT prophylaxis: Cynthia Foreman Internal Medicine Resident Addendum c/o abd dyscomfort, large volume of stool in ct, lactulose Date of Service: Jan 28, 2025 Billing Provider: MYRON GUTIÉRREZ MD Common Visit Codes: [id number] INP/OBS CARE(HIGH) PAUL FOREMAN, RES Jan 28, 2025 12:03 MYRON GUTIÉRREZ MD Jan 28, 2025 19:32
[2025-01-28] MEDS: metoprolol succinate 25mg (24-HOUR) SR. Tablet PO SCH (15:01)
--- NOTE | 2025-01-28 15:22 | ELECTROCARDIOGRAPH REPORT ---
[facility] Test Date: 2025-01-28 Test Time: 15:20:59 Pat Name: SIXTO BUCKLEY Department: [facility] 3S Patient ID: [facility]-[id number] Room: [place] [address] B Gender: F [employer] Instructor: : 1975 Requested By: PAUL RAUSCH Order Number: [id number] Reading MD: Dr. ZUNILDA King Measurements Intervals [place] Rate: 148 P: 0 AL: 0 QRS: 57 QRSD: 76 T: 53 QT: 302 QTc: 475 Interpretive Statements Atrial fibrillation Borderline ST depression, diffuse leads Electronically Signed On 01-28-2025 19:51:[address] ZUNILDA King Please click the below link to view image of tracing.
--- NOTE | 2025-01-28 16:40 | RADIOLOGY REPORT ---
Indication: abdominal pain Technique: CT axial images of the abdomen and pelvis are obtained with intravenous contrast. Coronal and sagittal reformats were obtained. Radiation Dose Information: CTDI volume is 8.1 mGy. Dose-length product is 373 mGy*cm Comparison: CT CT CHEST ABDOMEN PELVIS on DOS: 01/26/25, CT CT ABDOMEN PELVIS on DOS: 06/25/24 FINDINGS: Moderate left pleural effusion. Developing bibasilar airspace consolidation. Adrenal glands, spleen pancreas and liver unremarkable in shape. Gallbladder contracted. Kidneys demonstrate no hydronephrosis, nephrolithiasis. Stomach partially distended. Small bowel loops are normal in caliber. Large volume stool in the colon. No secondary signs for appendicitis. Abdominal aortic atherosclerotic disease. Bladder partially distended. Small amount of free pelvic f luid. No inguinal lymphadenopathy. Rbrj-mz-hyzhwaeo bilateral sacroiliac degenerative joint disease. Audd-un-abgplmuw thoracolumbar dege nerative disc disease. IMPRESSION: Large volume stool within the colon. Small amount of free pelvic fluid. Moderate left pleural effusion. Developing bibasilar airspace consolidation.
[2025-01-28] MEDS: lactulose 20gm/30ml cup PO SCH (20:00)
[2025-01-29] VITALS (9 sets, daily range): BP systolic 118–144; BP diastolic 55–77; PULSE 62–83; RESP 13–20; TEMP 97.2–97.8; O2SAT 95–99
[2025-01-29 06:01] LABS: MEAN PLATELET VOLUME 7.9 FL (7.4-10.4); RED CELL DISTRIBUTION WIDTH 14.6 % (11.5-14.5)
[2025-01-29 06:14] LABS: APTT 25 SECONDS (22-32); CREATININE 0.60 MG/DL (0.40-0.90); INR 1.0 INR; TOTAL CARBON DIOXIDE 26.4 MMOL/L (24-32); eCRCL 84 ML/MIN; eGFR > 90 ML/MIN
[2025-01-29] MEDS: potassium Cl 20 mEq SR tablet PO PRN ×2 (07:50→16:10)
[2025-01-29] MEDS ORDERED: magnesium sulf-water 2g/50mL 50 ML IV PRN (14:15)
[2025-01-29] MEDS ORDERED: potassium Cl 20 mEq SR tablet PO PRN (14:15)
[2025-01-29] MEDS ORDERED: magnesium sulf-water 4G/100mL 100 ML IV PRN (14:15)
[2025-01-29] MEDS ORDERED: potassium Cl 40MEQ/1/2NS 520ml 520 ML IV PRN (14:15)
[2025-01-29] MEDS ORDERED: HYDROcodone/acetaminophen 5mg/325mg tablet PO PRN (14:15)
[2025-01-29] MEDS ORDERED: magnesium Cl slow-release 64mg tablet PO PRN (14:15)
[2025-01-29] MEDS: cefepime 1GM in D5W 50mL 50 ML IV SCH (16:17)
--- NOTE | 2025-01-29 18:59 | PROGRESS NOTE- Residence ---
Progress Note - Resident Providers to CC Resident Creating Document: PAUL FOREMAN RES ~ Antibiotic Timeout Antibiotic Ordered?: Yes Subjective Patient was seen and examined at bedside. She is still complain of mild abdominal pain, repeated CT scan of the abdomen showed colon filled with stools continue laxative. She will be discharged home tomorrow. Objective Vital Signs Date Time Temp Pulse Resp B/P (MAP) Pulse Ox O2 Delivery O2 Flow Rate FiO2 01/29/25 11:35 62 20 95 Room Air* 0 21 01/29/25 11:00 97.5 134/76 (95) General: Cachectic and frail HEENT: Conjunctiva pink, Sclera clear, Mucus Membranes moist. Neck: Supple without masses and tenderness. Resp: Rhonchi left lower lobe. Heart: Sinus rhythm, normal S1 and S2 without murmur, rub or gallop. Abdomen: mild tenderness no organomegaly Extremities: No cyanosis,clubbing or edema. Skin: Warm and Dry. Result Diagram: Result Diagram: 01/29/25 0515 01/29/25 0515 Coagulation Studies Laboratory Tests Test 01/29/25 05:15 Prothrombin Time 10.3 SECONDS (9.0-12.0) INR International Normalized Ratio 1.0 INR Activated Partial Thromboplast Time 25 SECONDS (22-32) Coagulation Comments Assessment Assessment The patient is a 49-year-old female with a history of lung cancer who underwent robotic assisted left upper lobectomy with lymph node resection on December 23, 2024. She presents with progressively worsening shortness of breath over the past three days. She also reports a dry cough, intermittent fever, pleuritic chest pain (worse with deep inspiration), and generalized weakness. Plan Plan Acute hypoxemic respiratory failure Suspected Hospital-acquired pneumona (DC'd on 12/31/24) Recent admission & surgery +immunocompromised status from cancer increases risk for MRSA/Pseudomonas Sepsis present on admission, 2/2 to above; lactic acidosis, tachycardia, tachypnea, leukocytosis History of lung cancer, status post left upper lobectomy on 12/23/2024 Presenting with SOB, dry cough, pleuritic chest pain, fever, and weakness CT shows left-sided consolidation Preliminary blood culture negative, follow sputum culture IV hydration; received 1 L bolus NS in ER, continue NS 125 mL/hours Empiric antibiotics; amoxicillin allergy. Therefore, vancomycin, and cefepime initiated Pain management; on morphine 2 mg every 4 hours as needed History of lung cancer Status post left upper lobectomy on 12/23/2024 Follow up appointment with the oncologist is scheduled on February 12 at 10:00 a.m. Encouraged adherence to follow up appointments Opiate use disorder (in remission) History of opioid use for 10 years; quit in 2020 Currently compliant with methadone, attends clinic twice monthly Monitor for signs of withdrawal January 28, 2025: Shortness of breaths improved, WBC trended down. Chronic constipation, received Dulcolax suppositories, methylnaltrexone and Colace. Constipation relieved, five bowel movements Reports abdominal pain, CT abdomen without contrast ordered, she has contrast allergy, we will follow She had chronic constipation, being treated with Colace and Dulcolax suppositories. She had five bowel movement since yesterday. However, she still complains of mild diffuse abdominal pain. CT abdomen ordered, we will follow. As requested by the patient, I spoke with her sister; Abran ([phone]), explained clinical condition, imaging and lab work and updated her on disposition. Patient most likley be DC'd home tomorrow. January 29, 2025: Shortness of breaths improved; perfusing well while breathing ambient air WBC normalized. Still reports mild abdominal pain. Repeat abdominal CT was unremarkable; Continue laxative Patient will be discharged home tomorrow Code status: Full code DVT prophylaxis: Cynthia Foreman Internal Medicine Resident Date of Service: Jan 29, 2025 Billing Provider: MYRON GUTIÉRREZ MD Common Visit Codes: [id number] INP/OBS CARE(HIGH) PAUL FOREMAN, RES Jan 29, 2025 18:59 MYRON GUTIÉRREZ MD Feb 02, 2025 10:58
[2025-01-29] MEDS: K and/or MAG REPLACEMENT MC SCH (20:00)
[2025-01-30 02:00] VITALS: BP 142/79; PULSE 64; RESP 14; TEMP 97.8; O2SAT 97
[2025-01-30 06:00] VITALS: BP 145/77; PULSE 63; RESP 27; TEMP 97.5; O2SAT 96
[2025-01-30 06:13] LABS: MEAN PLATELET VOLUME 8.0 FL (7.4-10.4); RED CELL DISTRIBUTION WIDTH 14.4 % (11.5-14.5)
[2025-01-30 06:17] LABS: INR 1.0 INR
[2025-01-30 06:37] LABS: CREATININE 0.69 MG/DL (0.40-0.90); TOTAL CARBON DIOXIDE 26.9 MMOL/L (24-32); eCRCL 73 ML/MIN; eGFR 90 ML/MIN
[2025-01-30 11:00] VITALS: BP 108/65; PULSE 73; RESP 16; TEMP 98.1; O2SAT 95
[2025-01-30] MEDS ORDERED: PANT40TA54 PO (11:10)
[2025-01-30] MEDS ORDERED: BISA10SU11 RC (11:10)
[2025-01-30] MEDS ORDERED: METO-395 PO (11:10)
[2025-01-30] MEDS ORDERED: ONDA-243 PO (11:10)
[2025-01-30] MEDS ORDERED: POLY119P2 PO (11:10)
[2025-01-30] MEDS ORDERED: LEVO750T68 PO (11:10)
[2025-01-30] MEDS ORDERED: SIME80TA73 PO (11:10)
--- NOTE | 2025-01-30 17:43 | DISCHARGE SUMMARY-Residence ---
Discharge Summary Providers to Resident Creating Document: PAUL RAUSCH RES ~ Discharge Summary Admission Diagnosis: Pneumonia, Sepsis Hospital Course DATE OF ADMISSION: January 26, 2025 DATE OF DISCHARGE: January 30, 2025 Discharge Diagnosis\\Comment: Acute hypoxemic respiratory failure Suspected Hospital-acquired bacterial pneumona; covering both MRSA and Pseudomonas History of lung cancer Status post left upper lobectomy on 12/23/2024 Opiate use disorder (in remission) Operations\\Procedures: none Consultants: none Complications: none Condition on DC: Stable New Medications: Levofloxacin (Levofloxacin) 750 Mg Tablet 750 MG PO DAILY, #7 TAB ONDANSETRON ODT 4mg tablet (Ondansetron Odt) 4 Mg Tab.rapdis 4 MG PO Q6H for 10 Days, #20 TAB Polyethylene Glycol 3350 (Miralax) 17 Gram/Dose Powder 17 GM PO BID for constipation, #255 GM 0 Refills dissolve in water Bisacodyl (Bisacodyl) 10 Mg Supp.rect 10 MG RC DAILY PRN for constipation for 30 Days, #30 SUPP Metoprolol Succinate (Metoprolol Succinate) 25 Mg Tab.sr.24h 25 MG PO DAILY for 30 Days, #30 TAB.SR Pantoprazole Sodium (Pantoprazole Sodium) 40 Mg Tablet.dr 40 MG PO BKF for 30 Days, #30 TAB.SR Simethicone (Gas Relief 80) 80 Mg Tab.chew 80 MG PO TID PRN for gas for 30 Days, #30 TAB.CHEW Continued Medications: albuterol inhaler (Pro-Air Inhaler) 8.5 Gm Inhaler 2 PUFFS PO Q4H PRN for SOB or wheezing Beclomethasone Dipropionate (Qvar Redihaler) 80 Mcg/Actuation Hfa.aeroba 2 PUFFS INH Q12H for 30 Days, #10.6 GM 0 Refills Gabapentin (Gabapentin) 100 Mg Capsule 1 CAP PO Q8H for 30 Days, #90 CAP 0 Refills Methadone Hcl* (Dolophine*) 10 Mg Tablet 40 MG PO BID PRN for pain, TAB Discontinued Medications: Levofloxacin (Levofloxacin) 500 Mg Tablet 1 TAB PO DAILY for 10 Days, #10 TAB Levofloxacin (Levofloxacin) 500 Mg Tablet 1 TAB PO DAILY for 10 Days, #10 TAB Metronidazole* (Flagyl*) 500 Mg Tablet 1 TAB PO Q12H for 7 Days, #14 TAB Discharge Summary: History of present illness The patient is a 49-year-old female with a history of lung cancer who underwent robotic assisted left upper lobectomy with lymph node resection on December 23, 2024. She presents with progressively worsening shortness of breath over the past three days. She also reports a dry cough, intermittent fever, pleuritic chest pain (worse with deep inspiration), and generalized weakness. She notes that two of her daughters recently had "flu-like symptoms" with cough and fever prior to the onset of her current illness. She denies sputum production or hemoptysis. Her past medical history is also notable for a history of opioid use for 10 years, which she quit in 2020 with a brief relapse. She is currently maintained on methadone and attends a methadone clinic twice a month. She smoked for approximately eight years but quit after she suffered COVID infection in 2020. Hospital course Patient was admitted for Acute hypoxemic respiratory failure 2/2 Suspected Hospital-acquired pneumona. Given her recent admission & surgery +immunocompromised status from cancer increases, she was treated with vancomycin and cefepime. He was also found to be septic on presentation; lactic acidosis, tachycardia, tachypnea, leukocytosis. CT shows left-sided consolidation. Blood culture and sputum culture were negative. IV hydration; received 1 L bolus NS in ER, with continue NS 125 mL/hours. During hospital stay, patient was persistently complaining of abdominal pain, repeat CT abdomen was performed, which was unremarkable except for high volume of stool in colon. Constipation was treated with lactulose, methylnaltrexone, Dulcolax suppository, and Colace. Discharge course Shortness of breaths resolved. She is perfusing well while breathing ambient air. She is stable. She has a scheduled appointment with the oncologist on February 12, 2025 10:00 a.m.. Encouraged to keep that appointment. She was also encouraged to continue follow up with the methadone clinic for her appeared use disorder. Instructed to follow with her primary care doctor within one week. Discharge medications: See above Discharge physical exam: Vital Signs Date Time Temp Pulse Resp B/P (MAP) Pulse Ox O2 Delivery O2 Flow Rate FiO2 01/30/25 11:00 98.1 73 16 108/65 (79) 95 Room Air 01/29/25 11:35 0 21 General: Cachectic and frail HEENT: Conjunctiva pink, Sclera clear, Mucus Membranes moist. Neck: Supple without masses and tenderness. Resp: Rhonchi left lower lobe. Heart: Sinus rhythm, normal S1 and S2 without murmur, rub or gallop. Abdomen: mild tenderness no organomegaly Extremities: No cyanosis,clubbing or edema. Skin: Warm and Dry *Problems/Diagnosis: (1) Hospital-acquired bacterial pneumonia Total Time Spent on D/C: > 30 Minutes Date of Service: Jan 30, 2025 Billing Provider: RENAE SMITH MD Common Visit Codes: [id number] DISCH DAY >30min PAUL RAUSCH, RES Jan 30, 2025 17:42 RENAE SMITH MD Feb 01, 2025 10:16
== END 2025-01-30 12:55 | disposition home or self-care (01) | DRG 720 ==
LOC: ER 05:11 → ED HOLD 13:09 → PCU 3S 15:26
PROVIDERS: ADMIT Internal Medicine; ATTEND Internal Medicine
PROC: BW211ZZ Computerized Tomography (CT Scan) of Abdomen and Pelvis using Low Osmolar Contrast (ICD-10-PCS; principal; 2025-01-28)
DX: A41.9 Sepsis, unspecified organism (principal); J96.01 Acute respiratory failure with hypoxia; D84.89 Other immunodeficiencies; F11.90 Opioid use, unspecified, uncomplicated; J15.9 Unspecified bacterial pneumonia; F41.9 Anxiety disorder, unspecified; Z20.822 Contact with and (suspected) exposure to COVID-19; K59.09 Other constipation; E87.6 Hypokalemia; Z83.3 Family history of diabetes mellitus; Z85.118 Personal history of other malignant neoplasm of bronchus and lung; Z88.1 Allergy status to other antibiotic agents; Z88.7 Allergy status to serum and vaccine; Z91.041 Radiographic dye allergy status
CPT/HCPCS: 36415; 71045; 71250; 74176; 80053; 80061; 80202; 81001; 83036; 83605; 83690; 83880; 84145; 84443; 84484; 85025; 85610; 85730; 87040; 87081; 87811; 93005; 94640; 94760; 96365; 96366; 96367; 96368; 96375; 97116; 97161; 97530; 99291; 99292; A4615; A6258; G0378; J0456; J0692; J0696; J1650; J2212; J2270; J2405; J2765; J2919; J3373; J3375; J3480; J7030; J7040; Q9967

== ENCOUNTER 2025-03-20 12:31 | Emergency (ER) | payer MEDICAID ==
[~2025-03-20] VITALS: Ht 154.9 cm; Wt 53.9 kg
[~2025-03-20 12:31] MED LIST changes: +BISA10SU11 RC; -ESCI-8 PO; +GABA-530 PO; +METO-395 PO; -OMEP40CA21 PO; +ONDA-243 PO; +PANT40TA54 PO; +POLY119P2 PO; +SIME80TA73 PO; -WEL75T PO
--- NOTE | 2025-03-20 12:39 | ELECTROCARDIOGRAPH REPORT ---
[facility] Test Date: 2025-03-20 Test Time: 12:37:45 Pat Name: SIXTO BUCKLEY Department: [id number] Room: Gender: F Joy Loader: : 1975 Requested By: NIDA PAYTON Order Number: [id number] Reading MD: Measurements Intervals [place] Rate: 99 P: 75 NE: 194 QRS: 72 QRSD: 76 T: 41 QT: 364 QTc: 468 Interpretive Statements Sinus rhythm Left atrial enlargement Borderline repolarization abnormality Baseline wander in lead(s) I,II,aVR,aVL,aVF,V5 Please click the below link to view image of tracing.
[2025-03-20 12:59] LABS: MEAN PLATELET VOLUME 8.1 FL (7.4-10.4); RED CELL DISTRIBUTION WIDTH 14.4 % (11.5-14.5)
--- NOTE | 2025-03-20 13:15 | RADIOLOGY REPORT ---
CHEST RADIOGRAPH Indication: CP Technique: Single frontal view of the chest was obtained Comparison: CT CT CHEST ABDOMEN PELVIS on DOS: 01/26/25, DI CHEST,SINGLE VIEW on DOS: 01/26/25, DI CHES T,SINGLE VIEW on DOS: 12/21/24, DI CHEST,SINGLE VIEW on DOS: 12/20/24, DI CHEST,SINGLE VIEW on DOS: 5 FINDINGS: Lines and Tubes: None Lungs: Left apical opacity which could represent atelectasis and/or pneumonia. Pleura: No effusion. No pneumothorax. Cardiomediastinal contours: Unremarkable Bones: No acute osseous abnormality. IMPRESSION: Left apical opacity which could represent atelectasis and/or pneumonia.
[2025-03-20 13:36] LABS: CREATININE 1.02 MG/DL (0.40-0.90); PRO BRAIN NATRIURETIC PEPTIDE 80 PG/ML (0-125); TOTAL CARBON DIOXIDE 29.5 MMOL/L (24-32); eCRCL 49 ML/MIN; eGFR 57 ML/MIN
--- NOTE | 2025-03-20 14:53 | Physician Documentation ---
History of Present Illness ~ Chief Complaint: Chest Pain Stated Complaint: CP Time Seen by MD: 14:09 Primary Medical Doctor: JOSE A ACKERMAN Source: patient Mode of Arrival: POV Exam Limitations: no limitations HPI 50-year old female who is here with pain in her epigastric area when she goes from a supine to a seated position as well as immediately after eating. She states a few minutes after eating she has severe pain in her epigastric area to the point that she does not want to eat anymore. This occurs whether she eats food or even consumes liquids. Patient reports this has been ongoing now for three months since she had surgery for her non small-cell lung cancer. She has informed her doctors about this but states that she does not feel like there has been a plan to treat it. She is taking gabapentin 100 mg 3 times a day which she has been on since August and this has not helped with this pain. She also reports issues with constipation and she feels like there is air in her abdomen and she feels like the air needs to be sucked out. Patient's sister who sounds like she is very involved in taking care of her provides most of the history. No worsening of chronic sob, cough, fever, chills. Last bowel movement was last night. Has BM about every 2-3days and states the only way she can have a BM is with an enema but again states that this has been going since her surgery 12/2024. Medication Reconciliation Allergies: Coded Allergies: amoxicillin (Verified Allergy, Unknown, 03/20/25) ibuprofen (Verified Adverse Reaction, Mild, 03/20/25) BLEEDING FROM HER NOSE IN 2011 Uncoded Allergies: CONTRAST (Allergy, Unknown, 10/09/24) Scheduled Beclomethasone Dipropionate (Qvar Redihaler), 2 PUFFS INH Q12H, (Reported) Docusate Sodium (Docusate Sodium), 1 CAP PO DAILY, (Reported) Gabapentin (Gabapentin), 1 CAP PO Q8H, (Reported) Metoprolol Succinate (Metoprolol Succinate), 25 MG PO DAILY ONDANSETRON ODT 4mg tablet (Ondansetron Odt), 4 MG PO Q6H Pantoprazole Sodium (Pantoprazole Sodium), 40 MG PO BKF Polyethylene Glycol 3350 (Miralax), 17 GM PO BID Scheduled PRN Bisacodyl (Bisacodyl), 10 MG RC DAILY PRN for constipation Methadone Hcl* (Dolophine*), 40 MG PO BID PRN for pain, (Reported) Simethicone (Gas Relief 80), 80 MG PO TID PRN for gas albuterol inhaler (Pro-Air Inhaler), 2 PUFFS PO Q4H PRN for SOB or wheezing, (Reported) Past Medical History Past Medical History: Anxiety Past Surgical History: no surgical history Patient History: FH: cancer FATHER FH: uterine cancer MOTHER FHx: diabetes mellitus MOTHER Alcohol Use: None Drug Use: none Lives with: Family Lives In: Home Occupation: unemployed Review of Systems All Other Systems at this time: Reviewed and Negative Physical Exam Vital Signs: Temperature: 97.4, Source: Temporal, Heart Rate: 103, Respiratory Rate: 16, BP: 149/70, Pulse Oximetry: 99, Weight: 53.860 Oxygen Flow Rate: 0 Physical Exam GENERAL: Alert, no acute distress. HEENT: NCAT, EOMI, PERRL, normal oropharynx, moist oral mucosa. NECK: Supple, trachea midline. CARDIAC: Regular rate and rhythm, no murmurs, rubs, or gallops. PV: Equal distal pulses. No lower extremity edema, cap refill less than 2 seconds. RESPIRATORY: Equal breath sounds, clear to auscultation bilaterally, no respiratory distress. GASTROINTESTINAL: Non distended, soft, TTP AT EPIGASTRIC AREA AND LUQ WHERE PATIENT'S SCAR IS FROM HER SURGERY DONE IN DECEMBER, No guarding or rebound. MUSCULOSKELETAL: Normal range of motion, nontender, no swelling. Normal gait. NEUROLOGICAL: Awake, alert, and oriented x 3. SKIN: Warm/dry, no pallor, no rash. PSYCH: Alert and appropriate. Affect congruent with mood. Speech is clear. Good eye contact. Progress Results/Orders Results/Orders Orders - GEORGIE HOLM Sucralfate Tablet (Carafate Tablet) (03/20/25 14:45) Pantoprazole Tablet (Protonix) (03/20/25 14:45) Lidocaine 2% Viscous (Xylocaine 2% Visco (03/20/25 14:45) Mag & Alum Hydrox/Simeth Susp (Maalox Or (03/20/25 14:45) Vital Signs 03/20/25 03/20/25 12:34 14:33 Temp 97.4 Pulse 103 Resp 16 16 B/P (MAP) 149/70 Pulse Ox 99 O2 Flow Rate 0 Laboratory Tests Test 03/20/25 12:44 White Blood Count 7.2 Red Blood Count 4.67 Hemoglobin 12.7 Hematocrit 39.4 Mean Corpuscular Volume 84.5 Mean Corpuscular Hemoglobin 27.2 Mean Corpuscular Hemoglobin Concent 32.2 L Red Cell Distribution Width 14.4 Platelet Count 297 Mean Platelet Volume 8.1 Neutrophils (%) (Auto) 63.7 Lymphocytes (%) (Auto) 28.3 Monocytes (%) (Auto) 5.7 Eosinophils (%) (Auto) 1.8 Basophils (%) (Auto) 0.5 Neutrophils # (Auto) 4.6 Lymphocytes # (Auto) 2.0 Monocytes # (Auto) 0.4 Eosinophils # (Auto) 0.1 Basophils # (Auto) 0.0 CBC Comment Sodium Level 137 Potassium Level 3.4 L Chloride Level 99 Carbon Dioxide Level 29.5 Anion Gap 9 Blood Urea Nitrogen 9 Creatinine 1.02 H Estimated GFR/1.73 m2 57 BUN/Creatinine Ratio 8.8 L Glucose Level 125 H Calcium Level 9.3 Troponin I High Sensitivity 5 Pro-B-Type Natriuretic Peptide 80 Albumin 3.8 Chemistry Comments Medical Decision Making Differential Dx:Considerations: Include: angina, aortic dissection, chest wall pain, cholelithiasis, CHF, costochondritis, esophageal reflux/spasm, gastritis, herpes zoster, myocardial infarction, pericarditis, pleuritis, pancreatitis, pneumonia, pneumothorax, pulmonary embolus Departure Time of Disposition: 14:55 Disposition: 01 HOME / SELF CARE / HOMELESS Impression: Primary Impression: Epigastric pain Additional Impressions: Constipation Qualified Codes: K59.00 - Constipation, unspecified Pain at surgical incision Lung cancer Qualified Codes: C34.92 - Malignant neoplasm of unspecified part of left bronchus or lung Condition: Stable Discharge Instructions: Gastritis, Adult, [id number] Additional Instructions: Follow up with your primary care provider due to your symptoms that have been ongoing now for three months I was going to send a prescription for gastritis to your pharmacy considering the pain occurs immediately after eating this would be consistent with pain coming from your stomach not your intestines; however, when I went to do this I saw that you are already on these medications Continue your home medications I do not see any emergent or urgent issue going on right now, but if worsening of symptoms return ER You can double your gabapentin dosage 200mg TID Upon reviewing your chest x-ray the abnormal area in the upper lung is more consistent with something called atelectasis and not pneumonia which is normal after having a lung surgery given the fact that you do not have worsening of your breathing or cough or any other symptoms consistent with respiratory infection I am not going to treat you for a lung infection. Referrals: NO PRIMARY CARE PROVIDER (PCP) Education Educated: Patient, Family Educated regarding: diagnosis, treatment, need for follow up Signature Scribe Signature: x Attestation: GEORGIE Hernandez Mar 20, 2025 14:53
[2025-03-20] MEDS: LIDOcaine 2% Viscous 15ml cup MM ONE (15:12)
[2025-03-20] MEDS: mag hydrox/Alum hydrox/simeth 30ml oral suspension PO ONE (15:12)
[2025-03-20] MEDS: pantoprazole 40mg Tablet.DR PO STA (15:13)
[2025-03-20 15:19] VITALS: BP 122/59; PULSE 90; RESP 16; TEMP 97.5; O2SAT 95
== END 2025-03-20 15:22 | disposition home or self-care (01) ==
LOC: ER 12:31
DX: C34.92 Malignant neoplasm of unspecified part of left bronchus or lung (principal); K59.00 Constipation, unspecified; R10.13 Epigastric pain; Z88.6 Allergy status to analgesic agent; Z79.899 Other long term (current) drug therapy; Z56.0 Unemployment, unspecified
CPT/HCPCS: 36415; 71045; 80048; 83880; 84484; 85025; 93005; 99285

== ENCOUNTER 2025-04-21 13:27 | Emergency (ER) | payer MEDICAID ==
[~2025-04-21] VITALS: Ht 152.4 cm; Wt 52.3 kg
--- NOTE | 2025-04-21 14:00 | ELECTROCARDIOGRAPH REPORT ---
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
[2025-04-21 14:13] LABS: MEAN PLATELET VOLUME 7.9 FL (7.4-10.4); RED CELL DISTRIBUTION WIDTH 15.4 % (11.5-14.5)
--- NOTE | 2025-04-21 14:13 | RADIOLOGY REPORT ---
CHEST RADIOGRAPH Indication: CP Technique: Single frontal view of the chest was obtained COMPARISON: DI CHEST,SINGLE VIEW on DOS: 03/20/25, CT CT CHEST ABDOMEN PELVIS on DOS: 01/26/25, DI CHEST,SINGLE VIEW on DOS: 01/26/25, DI CHEST,SINGLE VIEW on DOS: 12/21/24, DI CHEST,SINGLE VIEW on DOS: 12/20/24 FINDINGS: Lungs and pleural spaces are clear. Cardiac silhouette and galo are within normal limits. Bones and soft tissues demonstrate no significant abnormality. IMPRESSION: No acute disease.
--- NOTE | 2025-04-21 14:15 | Physician Documentation ---
Addendum CHIEF COMPLAINT/HPI: The patient is a 50-year-old female who underwent a left lung lobectomy in December of this year. Over the past two days she has experienced tearing pain in her upper abdomen and chest radiating to her back. She is also complaining of numbness in her legs. REVIEW OF SYSTEMS: Constitutional: Denies chills, fatigue, fever, weight gain or weight loss. HEENT: Denies hearing loss, sinus pressure or visual changes. Respiratory: Denies cough, shortness of breath or wheezing. Cardiovascular: Chest and back pain. Gastrointestinal: Denies abdominal pain, blood in stool, constipation, diarrhea, heartburn, loss of appetite, nausea or vomiting. Genitourinary: Denies painful urination (dysuria), excessive amount of urine (polyuria) or urinary frequency. Metabolic/Endocrine: Denies cold intolerance, heat intolerance, excessive thirst (polydipsia) or excessive hunger (polyphagia). Neurological: Denies dizziness, extremity numbness, extremity weakness, headaches, seizures or tremors. Psychiatric: Denies anxiety or depression. Integumentary: Denies breast discharge, breast lump, hives, mole change(s), rash or skin lesion. Musculoskeletal: Denies back pain, joint pain, joint swelling or neck pain. Hematologic: Denies easily bleeding, easily bruises, lymphedema or issues with blood clots. Immunologic: Denies food allergies or seasonal allergies. PHYSICAL EXAMINATION: Vitals and nursing note reviewed. Constitutional: General: Patient is awake, alert, oriented x 4 in no acute distress and well appearing. Speech is clear and lucid. Appearance: Normal appearance. Patient is not ill-appearing, toxic-appearing or diaphoretic. HENT: Head: Normocephalic and atraumatic. Mouth: Mucous membranes are moist. Pharynx: Oropharynx is clear. Eyes: General: No scleral icterus. Extraocular Movements: Extraocular movements intact. Pupils: Pupils are equal, round, and reactive to light. Neck: Supple, no Kernig or Brudzinski sign. Cardiovascular: Rate and Rhythm: Normal rate and regular rhythm. Heart sounds: No murmur heard. Pulmonary: Effort: No respiratory distress. Breath sounds: No wheezing, rhonchi or rales. Abdominal: General: There is no distension. Palpations: There is no fluid wave, hepatomegaly or mass. Tenderness: There is no abdominal tenderness. There is no guarding. Musculoskeletal: General: No swelling or deformity. Skin: Coloration: Skin is not jaundiced. Findings: No erythema or rash. Neurological: Mental Status: Patient is alert. MEDICAL DECISION MAKING: [MDI] (DAVE CLANCY MD) Addendum Assume care of patient. Re-evaluated patient is she is sleeping comfortably. Reviewed patient's chart it seems she was seen here a proximally one month ago with similar complaint. Asked if her pain today similar to then she states that that has. She has been seen multiple doctors for this complaint. She reports improvement with GI cocktail last time. I will provide her with this. She is also complaining of some constipation. I have instructed her to increase her constipation medications and I will provide an additional medication for her. Regarding patient's bilateral paresthesias. She is ambulatory without issue with a reassuring physical exam and no bladder or bowel incontinence. She has excellent follow up tomorrow with her doctor. (JENNIE MONAE MD) Departure Disposition: 01 HOME / SELF CARE / HOMELESS Impression: Primary Impression: Abdominal pain Condition: Stable Discharge Instructions: Abdominal Pain (Nonspecific) Additional Instructions: Labs and imaging today were reassuring. Increase your constipation medications as needed to have regular bowel movements. You can not overdose on constipation medications. Prescriptions Bisacodyl (Dulcolax) 5 Mg Tablet.dr 4 TAB PO ONCE for constipation for 1 Day, #4 TAB 0 Refills Prov: JENNIE MONAE MD 04/21/25 Education Educated: Patient Educated regarding: diagnosis, treatment, need for follow up (JENNIE MONAE MD) DAVE CLANCY MD Apr 21, 2025 14:15 JENNIE MONAE MD Apr 21, 2025 18:24
[2025-04-21 14:33] LABS: CREATININE 0.74 MG/DL (0.40-0.90); PRO BRAIN NATRIURETIC PEPTIDE 37 PG/ML (0-125); TOTAL CARBON DIOXIDE 34.6 MMOL/L (24-32); eCRCL 67 ML/MIN; eGFR 82 ML/MIN
[2025-04-21 15:56] LABS: LEUKOCYTE ESTERASE ,URINE NEGATIVE (Neg); NITRITES, URINE NEGATIVE (Neg); OCCULT BLOOD,URINE MODERATE (Neg)
[2025-04-21 16:10] LABS: UA COLLECTION TYPE CLN CATCH MIDSTREAM
[2025-04-21 16:25] LABS: MUCUS STRANDS NONE SEEN /LPF (Neg); SQUAMOUS EPITHELIAL CELL,UR NONE SEEN /LPF (FEW)
[2025-04-21] MEDS: HYDROmorphone inj. 0.5 MG/0.5 ML DISP.SYRIN IV ONE (18:06)
[2025-04-21] MEDS: ondansetron/PF 4mg/2ml inj IV ONE (18:06)
--- NOTE | 2025-04-21 18:06 | RADIOLOGY REPORT ---
Procedure: CT CTA AORTA DISECTION W/ IV CONTRAST HISTORY: R/o AAA Comparison Study: CT CT ABDOMEN PELVIS on DOS: 01/28/25, CT CT CHEST ABDOMEN PELVIS on DOS: 01/26/25, CT CT CHEST on DOS: 12/15/24, CT CT ABDOMEN PELVIS on DOS: 06/25/24 Exam Date:04/21/2025 05:16 PM TECHNIQUE: CTA scanner volumetric data acquisition of abdomen and pelvis was obtained following intravenous administration of intravenous contrast without any reported adverse effects. Axial images were reconstructed and additional sagittal and coronal images were reformatted. Arterial phase imaging were performed. Postprocessing was also performed on a separate workstation. 3D images were performed on a dedicated workstation and reviewed for reporting. Radiation dose : CT Dose: CTDI volume is 10.85 mGy. Dose-length product is 64.26 mGy*cm FINDINGS: Vascular: No aortic aneurysm or dissection. Moderate aorta iliac vascular calcifications. No central, lobar, or segmental pulmonary embolism. Some of the peripheral vessels are poorly opacified and not well assessed. Lung Bases: No acute or significant lung base finding. Normal heart size. No pleural or pericardial effusion. Liver: The liver is normal in size. No focal lesions. Normal hepatic vascular enhancement. Gallbladder and biliary Tree: Unremarkable Spleen: Unremarkable Pancreas: The pancreas is normal in appearance without focal lesions or abnormal enhancement. Adrenal Glands: Unremarkable Kidneys: Kidneys demonstrate normal symmetric enhancement without focal lesions, calculi or hydronephrosis. Bladder: Unremarkable Bowel: The stomach is grossly normal in appearance. Small bowel and colon are normal in caliber and distribution. Normal appendix is visualized in the right lower quadrant without findings of appendicitis. Ascites: Absent Lymphadenopathy: No mesenteric, retroperitoneal or periportal lymphadenopathy. Abdominal wall and Mesentery: Unremarkable. Vasculature: The visualized abdominal aorta is normal in size and caliber. Abdominal and pelvic vessels demonstrate normal enhancement. Pelvic Organs: Unremarkable Musculoskeletal: No aggressive focal bony lesions, acute fractures or dislocation. IMPRESSION: No acute abnormality.
[2025-04-21] MEDS ORDERED: BISA-78 PO (18:23)
[2025-04-21] MEDS: mag hydrox/Alum hydrox/simeth 30ml oral suspension PO ONE (18:45)
[2025-04-21 19:07] VITALS: BP 130/77; PULSE 90; RESP 14; TEMP 97; O2SAT 95
== END 2025-04-21 19:00 | disposition home or self-care (01) ==
LOC: ER 13:27
DX: R10.10 Upper abdominal pain, unspecified (principal); Z90.2 Acquired absence of lung [part of]
CPT/HCPCS: 36415; 71045; 71275; 74174; 80048; 81001; 83880; 84484; 85025; 93005; 96374; 96375; 99285; J1171; J2405; Q9967

== ENCOUNTER 2025-04-23 04:54 | Emergency (ER) | payer MEDICAID ==
[~2025-04-23] VITALS: Ht 154.9 cm; Wt 44.5 kg
[~2025-04-23 04:54] MED LIST changes: +BISA-78 PO
[2025-04-23] MEDS ORDERED: MAGN296S68 PO (05:05)
[2025-04-23] MEDS ORDERED: ONDA-245 PO (05:05)
--- NOTE | 2025-04-23 05:06 | Physician Documentation ---
History of Present Illness ~ Chief Complaint: Constipation Stated Complaint: SEE CHIEF COMPLAINT A BLS Time Seen by MD: 05:02 Primary Medical Doctor: JOSE A ACKERMAN HPI Patient presents to the emergency room complaining of abdominal pain constipation. She was seen at [facility] and given Mag citrate but she states she threw it up. She was seen here by myself my last shift for similar complaints. Upon review of patient's records patient has seen one month ago for similar complaints in EMS reports that patient has been to [facility] multiple times for this. Medication Reconciliation Allergies: Coded Allergies: amoxicillin (Verified Allergy, Unknown, 03/20/25) ibuprofen (Verified Adverse Reaction, Mild, 03/20/25) BLEEDING FROM HER NOSE IN 2011 Uncoded Allergies: CONTRAST (Allergy, Unknown, 10/09/24) Scheduled Beclomethasone Dipropionate (Qvar Redihaler), 2 PUFFS INH Q12H, (Reported) Bisacodyl (Dulcolax), 4 TAB PO ONCE Docusate Sodium (Docusate Sodium), 1 CAP PO DAILY, (Reported) Gabapentin (Gabapentin), 1 CAP PO Q8H, (Reported) Metoprolol Succinate (Metoprolol Succinate), 25 MG PO DAILY ONDANSETRON ODT 4mg tablet (Ondansetron Odt), 4 MG PO Q6H Pantoprazole Sodium (Pantoprazole Sodium), 40 MG PO BKF Polyethylene Glycol 3350 (Miralax), 17 GM PO BID Scheduled PRN Bisacodyl (Bisacodyl), 10 MG RC DAILY PRN for constipation Methadone Hcl* (Dolophine*), 40 MG PO BID PRN for pain, (Reported) Simethicone (Gas Relief 80), 80 MG PO TID PRN for gas albuterol inhaler (Pro-Air Inhaler), 2 PUFFS PO Q4H PRN for SOB or wheezing, (Reported) Past Medical History Past Medical History: Anxiety Past Surgical History: no surgical history Patient History: FH: cancer FATHER FH: uterine cancer MOTHER FHx: diabetes mellitus MOTHER Alcohol Use: None Drug Use: none Lives with: Family Lives In: Home Occupation: unemployed Review of Systems ROS All review of systems negative except as per HPI Physical Exam Vital Signs: Temperature: 98.4, Source: Oral, Heart Rate: 95, Respiratory Rate: 16, BP: 135/95, Pulse Oximetry: 98, Weight: 44.550 Oxygen Flow Rate: 0 Physical Exam General: Patient is awake, alert, oriented x4 in no acute distress Head: Normocephalic and atraumatic. Eyes: Conjunctival normal. EOMI. PERRL. ENT: Mucous membranes moist. Neck: Supple, trachea is midline. Chest: Clear to auscultation bilaterally without rales, rhonchi, or wheezes. There is no accessory muscle use or retractions. Cardiac: RRR without murmurs, gallops, or rubs. Abd: Soft, nondistended, diffuse abdominal tenderness without peritonitis Progress Results/Orders Results/Orders Vital Signs 04/23/25 04:55 Temp 98.4 Pulse 95 Resp 16 B/P (MAP) 135/95 Pulse Ox 98 O2 Flow Rate 0 Medical Decision Making Findings Patient presents to the emergency room with continued constipation. I will provide her nausea medicine so that she can take her constipation medications. Given patient's history and vital signs that are stable and he had not feel repeat labs or imaging is necessary. Departure Disposition: 01 HOME / SELF CARE / HOMELESS Impression: Primary Impression: Constipation Condition: Stable Discharge Instructions: Constipation, Adult Referrals: NO PRIMARY CARE PROVIDER (PCP) Prescriptions Magnesium Citrate (MAGNESIUM CITRATE oral solution) 296 Ml Solution 296 ML PO ONCE for 1 Day, #296 ML 0 Refills Prov: JENNIE KWOK MD 04/23/25 Ondansetron 8mg ODT (Ondansetron Odt) 8 Mg Tab.rapdis 1 TAB PO Q6H for nausea/vomiting for 3 Days, #12 TAB 0 Refills Prov: JENNIE KWOK MD 04/23/25 Education Educated: Patient Educated regarding: diagnosis, treatment, need for follow up Signature Scribe Signature: No scribe Attestation: The note accurately reflects work and decisions made by me.Jennie Kwok MD 04/23/25 05:06 JENNIE KWOK MD Apr 23, 2025 05:06
[2025-04-23] MEDS: bisacodyl 5mg tablet.DR PO ONE (05:13)
[2025-04-23] MEDS: ondansetron 4mg rapidly disintigrating tab PO ONE (05:13)
[2025-04-23 05:15] VITALS: BP 145/87; PULSE 87; RESP 16; O2SAT 96
[2025-04-23 05:25] VITALS: TEMP 98.4
== END 2025-04-23 05:35 | disposition home or self-care (01) ==
LOC: ER 04:54
DX: K59.00 Constipation, unspecified (principal); Z88.0 Allergy status to penicillin; Z88.6 Allergy status to analgesic agent
CPT/HCPCS: 99283

== ENCOUNTER 2025-06-25 08:21 | Day surgery (SDC) | payer MEDICAID ==
[~2025-06-25] VITALS: Ht 154.9 cm; Wt 54.8 kg
[2025-06-25] VITALS (12 sets, daily range): BP systolic 96–146; BP diastolic 49–70; PULSE 62–82; RESP 11–20; TEMP 97.4; O2SAT 95–100
[~2025-06-25 08:21] MED LIST changes: -ALBU8HFA PO; -BECL10.62 INH; -BISA-78 PO; -BISA10SU11 RC; -DOCU-391 PO; -METH-603 PO; -METO-395 PO; +OMEP40CA21 PO; -ONDA-243 PO; -PANT40TA54 PO; -POLY119P2 PO; -SIME80TA73 PO; +ringers solution, lacted 1,000 ML IV SCH; +simethicone 40mg/0.6ml oral drops 15ml PO ONE
[2025-06-25] MEDS ORDERED: fentaNYL/PF 50MCG/1 ML 2ML syringe ONE (10:37)
[2025-06-25] MEDS ORDERED: MIDAZolam 1 MG/ML 5ML VIAL ONE (10:38)
[2025-06-25] MEDS ORDERED: LIDOcaine 2% Viscous 15ml cup ONE (10:38)
[2025-06-25] MEDS: benzocaine (Anbesol) 12ml bottle MM PRN (11:58)
== END 2025-06-25 12:30 | disposition home or self-care (01) ==
LOC: PAS 08:21
PROVIDERS: ATTEND Internal Medicine Gastroenterology
DX: K30 Functional dyspepsia (principal); K59.00 Constipation, unspecified; K21.00 Gastro-esophageal reflux disease with esophagitis, without bleeding; K29.70 Gastritis, unspecified, without bleeding; K21.9 Gastro-esophageal reflux disease without esophagitis; F41.9 Anxiety disorder, unspecified; F32.A Depression, unspecified; Z87.891 Personal history of nicotine dependence; Z79.899 Other long term (current) drug therapy; Z90.2 Acquired absence of lung [part of]; Z88.6 Allergy status to analgesic agent; Z91.041 Radiographic dye allergy status
CPT/HCPCS: 43239; 82948; J2250; J3010; J7070; J7120; Z7512; 99152

== ENCOUNTER 2025-07-07 17:39 | Emergency (ER) | payer OTHER, MEDICAID ==
[~2025-07-07] VITALS: Ht 154.9 cm; Wt 53.6 kg
[~2025-07-07 17:39] MED LIST changes: -ringers solution, lacted 1,000 ML IV SCH; -simethicone 40mg/0.6ml oral drops 15ml PO ONE
--- NOTE | 2025-07-07 18:21 | RADIOLOGY REPORT ---
CHEST RADIOGRAPH INDICATION: Chest wall pain/injury TECHNIQUE: Single frontal view of the chest 3 views of the ribs are available for evaluation. COMPARISON: None FINDINGS: Lines and Tubes: None Lungs: Redemonstration of left lower lung zone opacity which when correlated with prior CT appears to represent Small posterior pericardial effusion. Pleura: No effusion. No pneumothorax. Cardiomediastinal contours: Unremarkable Bones: No acute osseous abnormality. No acute displaced rib fractures. IMPRESSION: Small left posterior pericardial effusion. Otherwise, No acute cardiopulmonary disease. No acute displaced rib fractures.
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
[2025-07-07] MEDS ORDERED: METH-797 PO (19:24)
[2025-07-07 19:50] VITALS: BP 110/62; PULSE 80; RESP 16; TEMP 98.6; O2SAT 99
== END 2025-07-07 19:51 | disposition home or self-care (01) ==
LOC: ER 17:40
DX: S20.212A Contusion of left front wall of thorax, initial encounter (principal); F41.9 Anxiety disorder, unspecified; Z79.899 Other long term (current) drug therapy; Z88.6 Allergy status to analgesic agent; Z88.1 Allergy status to other antibiotic agents; Z56.0 Unemployment, unspecified; V43.62XA Car passenger injured in collision with other type car in traffic accident, initial encounter; Y93.89 Activity, other specified; Y92.89 Other specified places as the place of occurrence of the external cause; Y99.8 Other external cause status
CPT/HCPCS: 71101; 99283